=== PATIENT | female | born 1950 | race Caucasian/White ===

== ENCOUNTER 2022-03-04 10:03 | Outpatient (CLI) | payer MEDICARE, OTHER, SELFPAY ==
--- NOTE | 2022-03-04 10:15 | CRLHL7_ITS ---
For Patients: As a result of the Century Cures Act, medical imaging exams and procedure reports are released immediately into your electronic medical record. You may view this report before your referring provider. If you have questions, please contact your health care provider. BILATERAL SCREENING MAMMOGRAM WITH COMPUTER-AIDED DETECTION AND TOMOSYNTHESIS TECHNIQUE: CC and MLO views were obtained. These mammographic images have been obtained using full-field digital technique. These mammographic images were interpreted with the benefit of computer-aided detection. Breast Tomosynthesis was used in this interpretation. COMPARISON FILM: 02/28/21, 02/24/20, 08/03/17. FINDINGS: The breasts are heterogeneously dense, which may obscure small masses IMPRESSION: There is no radiographic evidence for malignancy. ASSESSMENT: BI-RADS Category 1: Negative RECOMMENDATION: Routine screening mammogram in 1 year. A lay language report of this examination will be provided to the patient. Sven Bess M.D. Diagnostic Radiologist [email or web address] DENNIS/Dictated by: Sven Bess MD @ 03/04/2022 12:26:00 PM (Electronically Signed)
== END 2022-03-04 10:04 | disposition home or self-care (01) ==
LOC: MAMMO 10:04
PROVIDERS: PCP Internal Medicine; Visit Provider Internal Medicine
DX: Z12.31 Encounter for screening mammogram for malignant neoplasm of breast (principal); R92.2 Inconclusive mammogram
CPT/HCPCS: 77063; 77067

== ENCOUNTER 2022-06-23 09:43 | Emergency (ER) | payer MEDICARE, OTHER, SELFPAY ==
[2022-06-23 09:47] VITALS: BP 184/98; PULSE 70; RESP 16; TEMP 36.3; O2SAT 97
--- NOTE | 2022-06-23 10:13 | CRLHL7_ITS ---
For Patients: As a result of the Century Cures Act, medical imaging exams and procedure reports are released immediately into your electronic medical record. You may view this report before your referring provider. If you have questions, please contact your health care provider. INDICATION: LEFT FLANK PAIN TECHNIQUE: CT abdomen and pelvis without contrast, stone protocol. COMPARISON: CT abdomen pelvis February 14, 2020 FINDINGS: Kidney/ureters: Postoperative changes of partial left nephrectomy for tumor removal. Evaluation of the renal parenchyma is suboptimal due to lack of IV contrast. No kidney or ureteral stones and no hydronephrosis. No sign of perinephric inflammation. The bladder appears unremarkable. Liver/gallbladder/bile ducts: Hepatic steatosis is noted. The gallbladder surgically absent. No biliary duct dilation. Spleen/pancreas/adrenal glands: The spleen, adrenal glands and pancreas are within normal limits. GI tract: Postoperative changes in the distal colon. No bowel obstruction. Mild fecal retention. Colonic diverticulosis without evidence of acute diverticulitis. Abdominal wall/omentum/peritoneum: No free air or significant free fluid. Postsurgical changes from ventral hernia repair. Lymph nodes: No lymphadenopathy. Pelvis: Probable calcified uterine fibroids are again seen. Lower chest: Linear bibasilar atelectasis and scarring. Bones: Mild multilevel degenerative spondylosis without acute fracture or aggressive osseous lesion. IMPRESSION: 1. No evidence of acute intra-abdominal process on this unenhanced CT. 2. Status post left partial nephrectomy with evaluation for recurrence limited due to lack of IV contrast. No evidence of stone or hydronephrosis. 3. Hepatic steatosis. Please note that all CT scans at this facility use dose modulation, iterative reconstruction, and/or weight-based dosing when appropriate to reduce radiation dose to as low as reasonably achievable. Dictated by Yan Summers MD @ 06/23/2022 12:21:28 PM (Electronically Signed)
--- OUTSIDE RECORDS SUMMARY | 2022-06-23 10:27 | XMS_ITS | Clinical Summary ---
:1950 Author Organization [facility] [place] [address] Care Team Providers Name Role Phone Adele Mishra MD Primary Care Provider Allergies Active Allergy Reactions Severity Noted Date Comments Ciprofloxacin Itching 06/03/2016 Doxycycline Other - Describe In High 01/06/2017 Had it f or an eye Comment Field, infection and after *Unknown - Childhood 10 days it irritated Rxn her esophagus Metronidazole In Nacl Itching 06/03/2016 (Iso-Os) Medications Medication Sig Dispensed Refills Start End Status Date Date levothyroxine Take 75 mcg by mouth 0 Active (SYNTHROID) 75 mcg before breakfast. tabletIndications: Indications: hypothyroidism hypothyroidism atorvastatin (LIPITOR) Take 10 mg by mouth 0 Active 10 mg once daily. tabletIndications: Indications: hypercholesterolemia hypercholesterolemia guar gum (BENEFIBER) Take 1 Tbsp by mouth 0 12/03/19 Active powd once daily. MIX IN 4 OZ 18 BEVERAGE/SOFT FOOD. multivitamin (MVI) Take 1 tablet by mouth 0 12/03/19 Active tablet once daily. 18 lisinopriL (PRINIVIL; 0 04/04/20 Active ZESTRIL) 40 mg tablet 21 polyethylene Drink 3 quarts the day 4000 mL 0 05/10/20 Active glycol-electrolyte before procedure and 1 21 (GOLYTELY) quart 6 hours before [id number] -5.86 procedure gram suspensionIndications: Encounter for screening colonoscopy Active Problems Not on file Social History Tobacco Use Types Packs/Day Years Used Date Never Smoker Smokeless Tobacco: Never Used Tobacco Cessation: Counseling Given: Yes Alcohol Use Standard Drinks/Week Comments Yes 1 (1 standard drink = 0.6 oz pure occasi onally glass of wine weekly alcohol) Alcohol Habits Answer Date Recorded How often do you have a drink Not asked containing alcohol? How many drinks containing alcohol do Not asked you have on a typical day when you are drinking? How often do you have six or more Not asked drinks on one occasion? Comment: occasionally glass of wine weekly 2017 Sex Assigned at Date Recorded Not on file Obstetrics History Last Filed Vital Signs Vital Sign Reading Time Taken Comments Blood Pressure 138/67 04/17/2021 2:08 PM CDT Pulse 64 04/17/2021 2:08 PM CDT Temperature 36.4 ??C (97.6 ??F) 06/03/2016 11:08 AM [employer]LECTR[employer] APPL[employer]ANCE [employer]IC Respiratory Rate 16 12/02/2017 12:53 PM CDT Oxygen Saturation 97% 04/17/2021 2:08 PM CDT Inhaled Oxygen Concentration - - Weight 87.4 kg (192 lb 9.6 oz) 04/17/2021 2:08 PM CDT Height 171.5 cm (5' 7.5) 12/02/2017 12:53 PM CDT Body Mass Index 29.72 12/02/2017 12:53 PM CDT Plan of Treatment Health Maintenance Due Date Last Done Comments Tdap 1961 Depression screening for age 12+ 1962 Hepatitis C screening for age 18-79 1968 Tetanus booster 1970 Lipids for age 45-75 1995 Mammogram for age 45-75 1995 Zoster (shingles) series for age 50+ 2000 (1 of 2) DEXA/DXA scan for age 65+ 2015 Medicare Wellness for age 65+ 2015 Pneumococcal series for age 65+ (1 - 2015 PCV) BMI (ht and wt on same day) for age 0512/02/2018 12/02/2017 18+ COVID-19 vaccine series (4 - Booster 07/11/2021 05/16/2021, 10/12/2020, for Pfizer series) 09/21/2020 Influenza for age 65+ 03/20/2022 Colonoscopy through age 75 06/03/2031 06/03/2021, Results Not on filefrom Last 3 Months Insurance Payer Benefit Plan / Subscriber ID Effective Dates Phone Addre ss Type Group MEDICARE PART B MEDICARE PART B [id number] 2015-Presen ATTN: CLAIMS - HB USE ONLY HB ONLY t [address] [place] [address] MEDICARE PART A MEDICARE PART A [id number] 2015-Presen ATTN: CLAIMS - HB USE ONLY HB ONLY t [address] [place] [address] MEDICARE - PB MEDICARE PB ONLY [id number] 2015-Presen ATTN: CLAIMS USE ONLY t [address] [place] [address] COMMERCIAL COMMERCIAL [id number] 2014-Presen [address] [place] [address] [phone] (Home) [place] [id number] Care Teams Fence Installer Relationship Specialty Start Date End Date Adele Mishra MD PCP - General Internal Medicine 12/01/171999 [facility] [place] [address]
[2022-06-23 10:37] VITALS: BP 186/86; PULSE 63; RESP 16; O2SAT 99
[2022-06-23 10:40] LABS: Appearance Urine Clear (Clear); Bilirubin Urine Negative (Negative); Blood Urine Negative (Negative); Color Urine Yellow (Yellow); Glucose Urine Negative (Negative); Ketones Urine Negative (Negative); Leukocyte Esterase Urine 1+ (Negative); Nitrite Urine Negative (Negative); Protein Urine Negative (Negative); Urobilinogen Urine 0.2 (0.2-1.0); pH Urine 6.5 (5.0-8.5)
[2022-06-23 10:43] LABS: Basophils Percent Auto 0.4 % (0.0-3.0); Eosinophils Percent Auto 0.5 % (0.0-7.0); Hematocrit 44.4 % (33.0-51.0); Hemoglobin* 15.6 gm/dL (12.0-16.0); Immature Granulocytes Pct Auto 0.2 %; Mean Corpuscular HGB Conc 35 gm/dL (32-36); Mean Corpuscular Hemoglobin 32 pg (26-34); Mean Corpuscular Volume 90 fL (80-100); Neutrophils Percent Auto 76.9 % (42.0-72.0); Platelet Count* 245 K/uL (140-440); RDW Coefficient of Variation % 12.3 % (11.5-15.5); Red Blood Count 4.96 m/uL (4.00-5.20)
[2022-06-23 10:56] LABS: RBC Urine 0-2 (0-2)
[2022-06-23 10:57] LABS: Slide Review Reflex No
[2022-06-23 10:58] LABS: Chloride* 106 mmol/L (96-114); Sodium* 139 mmol/L (135-149)
[2022-06-23 11:00] VITALS: BP 181/106; PULSE 63; RESP 16; O2SAT 97
[2022-06-23 11:00] LABS: Albumin* 4.7 g/dL (3.3-5.0)
[2022-06-23 11:01] LABS: Creatinine* 0.7 mg/dL (0.5-1.5); Estimated Glomerular Filt Rate 92 ml/min
--- NOTE | 2022-06-23 11:01 | ED_ITS ---
HPI - General Adult General Chief complaint: Back Injury/Pain Stated complaint: Mid-upper back pain Time Seen by Provider: 06/23/22 10:04 Source: patient Mode of arrival: ambulatory Limitations: no limitations History of Present Illness HPI narrative: Patient is a 72-year-old female coming in today complaining of back pain that has been going on for 5 weeks. Pain is located over the left flank and radiates up the left back to about the shoulder blade. She states that it comes and goes. Is not present every day. Nothing seems to make it better or worse. It is not associated with fevers, chills, nausea or vomiting. Is not associated with eating or physical activity. Patient is concerned because she does have a history of renal cancer and this is how her symptoms presented when she was diagnosed several years ago. She denies any difficulty with urination including dysuria, increased urinary frequency or urgency. She denies any blood in her stools. She denies any abdominal pain in the front of the abdomen. She denies any diarrhea or constipation, states that she has a daily bowel movement and is normal. She states that she has lost 7 lb since the summer by changing her diet. She denies any night sweats. She denies any weakness. Related Data Home Medications Medication Instructions Recorded Confirmed Lactobacillus 1 cap PO DAILY 01/21/22 01/23/22 acidophilus-Bifidobac.animalis 31 billion cell capsule multivitamin 1 tab PO QAM 01/21/22 01/23/22 wheat dextrin 3 gram/3.8 gram oral 4 PO DAILY 01/21/22 01/23/22 powder Previous Rx's Medication Instructions Recorded atorvastatin 10 mg tablet 10 mg PO QDAY #90 tabs 01/23/22 levothyroxine 75 mcg tablet 75 mcg PO DAILY #90 tabs 01/23/22 lisinopril 40 mg tablet 40 mg PO DAILY #90 tabs 01/23/22 Allergies Allergy/AdvReac Type Severity Reaction Status Date / Time doxycycline Allergy Intermediate esophagitis Verified 01/23/22 15:08 ciprofloxacin Allergy Unknown Verified 01/23/22 15:08 metronidazole Allergy Unknown Verified 01/23/22 15:08 Review of Systems Status of ROS: Reports: 10 or more systems reviewed and unremarkable except as noted in History and below [facility] Medical History History of esophagitis (11/2016) Surgical History History of benign breast biopsy (2012) History of bunionectomy of left great toe (2006) History of cholecystectomy (1996) History of incisional hernia repair (07/01/18) 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) History of partial surgical removal of colon (09/17/16) History of tonsillectomy Social History Smoking Status: Never smoker How often do you have a drink containing alcohol: monthly or less AUDIT-C Alcohol total score: 1 Non-prescribed substance use: denies use Little interest or pleasure in doing things: not at all Feeling down, depressed, or hopeless: not at all service: No Exam Narrative: Exam Narrative: Well-nourished well-developed patient in no acute distress. Alert and oriented. Answers questions appropriately. Mood and affect are appropriate. Thoughts are goal oriented and rational. No tangential or magical thinking noted. Patient speaks in full sentences without needing to catch their breath. HEENT: Normocephalic atraumatic. Pupils are equally round reactive to light. Extraocular muscles are intact. Conjunctivae are moist without any icterus noted. Moist mucous membranes. Posterior pharynx is normal. Neck is soft without any lymphadenopathy or thyromegaly. Cardiovascular: Heart is regular rate and rhythm S1 and S2 are present without any murmurs. Lungs: Clear to auscultation bilaterally no wheezes rhonchi or rales are appreciated. Patient takes deep breaths without any discomfort. Abdomen: Soft and nontender nondistended with normal bowel sounds. No guarding or rebound. No masses or organomegaly appreciated. Extremities: Bilateral lower extremities are without edema. Normal DP and PT pulses. Skin: Well perfused without any obvious rashes. Back: Has normal appearance. She has no tenderness to palpation over the thoracic or lumbar spine. She has no CVA tenderness. She has no tenderness at the paraspinal musculature. Back exam is normal. Const: Vital Signs, click to edit/add: Vital Signs - 24 hr 06/23/22 09:47 06/23/22 10:37 06/23/22 11:00 Temperature 97.4 F L Pulse Rate [Pulse Oximeter] 70 63 63 Respiratory Rate 16 16 16 Blood Pressure [Ri ght Upper Arm] 184/98 H 186/86 H 181/106 H Pulse Oximetry 97 99 97 Oxygen Delivery Me thod Room Air Room Air Room Air 06/23/22 11:30 Temperature Pulse Rate [Pulse Oximeter] 63 Respiratory Rate 16 Blood Pressure [Ri ght Upper Arm] 160/68 H Pulse Oximetry 100 Oxygen Delivery Me thod Room Air Course Course Hospital Course: Labs were drawn and were unremarkable. Abdominal CT was done and did not show any acute lesions of the kidneys, unfortunately this did get done without contrast as we were also evaluating for a kidney stone, so evaluation was suboptimal. I did offer the patient to proceed with a renal ultrasound which the patient declined. UA did show 1+ leukocyte esterase and 5-10 wbc's, however without any increased urinary frequency, urgency or dysuria and the location of her pain traveling up all the way to the shoulder blade, I do not think that her symptoms are caused by UTI. Vital Signs Vital signs: Initial Vital Signs Temperature 97.4 F L 06/23/22 09:47 Temperature Source Temporal Artery Scan 06/23/22 09:47 Pulse Rate 70 06/23/22 09:47 Pulse Rhythm 06/23/22 09:47 Respiratory Rate 16 06/23/22 09:47 Blood Pressure 184/98 H 06/23/22 09:47 Blood Pressure Mean 126 06/23/22 09:47 Blood Pressure Position Sitting 06/23/22 09:47 Pulse Oximetry 97 06/23/22 09:47 Oxygen Delivery Method 06/23/22 09:47 Vital Signs Temperature 97.4 F L 06/23/22 09:47 Pulse Rate 70 06/23/22 09:47 Respiratory Rate 16 06/23/22 09:47 Blood Pressure 184/98 H 06/23/22 09:47 Pulse Oximetry 97 06/23/22 09:47 Oxygen Delivery Method 06/23/22 09:47 Temperature 97.4 F L 06/23/22 09:47 Pulse Rate 63 06/23/22 11:30 Respiratory Rate 16 06/23/22 11:30 Blood Pressure 160/68 H 06/23/22 11:30 Pulse Oximetry 100 06/23/22 11:30 Oxygen Delivery Method 06/23/22 11:30 Medical Decision Making Lab Data Lab results reviewed: Yes I reviewed the patient's lab results Labs: Lab Results 06/23/22 06/23/22 06/23/22 Range/Units 10:12 10:25 10:25 WBC 11.10 H (4.50-11.00) K/uL RBC 4.96 (4.00-5.20) m/uL Hgb 15.6 (12.0-16.0) gm/dL Hct 44.4 (33.0-51.0) % MCV 90 (80-100) fL MCH 32 (26-34) pg MCHC 35 (32-36) gm/dL RDW Coeff of Dejuan 12.3 (11.5-15.5) % Plt Count 245 (140-440) K/uL Neut % (Auto) 76.9 H (42.0-72.0) % Lymph % (Auto) 17.0 L (20-44) % [place] % (Auto) 5.0 (0.0-11.0) % Eos % (Auto) 0.5 (0.0-7.0) % Baso % (Auto) 0.4 (0.0-3.0) % Neut # (Auto) 8.50 H (1.7-7.0) K/uL Lymph # (Auto) 1.90 (0.90-2.90) K/uL [place] # (Auto) 0.60 (0.00-0.90) K/UL Eos # (Auto) 0.10 (0.00-0.50) K/uL Baso # (Auto) 0.00 (0.00-0.30) K/uL Abs Immat Gran (auto) 0.00 (0.00-0.30) K/uL Imm/Tot Granulo (auto) 0.2 % ESR (2-20) mm/hr D-Dimer Quant (PE/DVT) 0.39 (0.00-0.50) ug/ml Sodium (135-149) mmol/L Potassium (3.6-5.1) mmol/L Chloride (96-114) mmol/L Carbon Dioxide (20-32) mmol/L BUN (7-30) mg/dL Creatinine (0.5-1.5) mg/dL Estimated GFR ml/min Glucose (60-115) mg/dL Calcium (8.4-10.6) mg/dL Total Bilirubin (0.1-1.5) mg/dL Direct Bilirubin (0.0-0.5) mg/dL AST (12-35) U/L ALT (4-35) U/L Alkaline Phosphatase (40-150) U/L C-Reactive Protein (0.5-1.0) mg/dL Total Protein (6.0-8.3) g/dL Albumin (3.3-5.0) g/dL Lipase (23-300) U/L Urine Color Yellow (Yellow) Urine Appearance Clear (Clear) Urine pH 6.5 (5.0-8.5) Ur Specific [place] 1.010 (1.000-1.030) Urine Protein Negative (Negative) Urine Glucose (UA) Negative (Negative) Urine Ketones Negative (Negative) Urine Blood Negative (Negative) Urine Nitrite Negative (Negative) Urine Bilirubin Negative (Negative) Urine Urobilinogen 0.2 (0.2-1.0) Ur Leukocyte Esterase 1+ A (Negative) Urine RBC 0-2 (0-2) Urine WBC 5-10 A (0-5) Ur Squamous Epith Cells None (None-Few) Urine Bacteria None (None) 06/23/22 06/23/22 06/23/22 Range/Units 10:25 10:25 10:25 WBC (4.50-11.00) K/uL RBC (4.00-5.20) m/uL Hgb (12.0-16.0) gm/dL Hct (33.0-51.0) % MCV (80-100) fL MCH (26-34) pg MCHC (32-36) gm/dL RDW Coeff of Dejuan (11.5-15.5) % Plt Count (140-440) K/uL Neut % (Auto) (42.0-72.0) % Lymph % (Auto) (20-44) % [place] % (Auto) (0.0-11.0) % Eos % (Auto) (0.0-7.0) % Baso % (Auto) (0.0-3.0) % Neut # (Auto) (1.7-7.0) K/uL Lymph # (Auto) (0.90-2.90) K/uL [place] # (Auto) (0.00-0.90) K/UL Eos # (Auto) (0.00-0.50) K/uL Baso # (Auto) (0.00-0.30) K/uL Abs Immat Gran (auto) (0.00-0.30) K/uL Imm/Tot Granulo (auto) % ESR 16 (2-20) mm/hr D-Dimer Quant (PE/DVT) (0.00-0.50) ug/ml Sodium 139 (135-149) mmol/L Potassium 4.0 (3.6-5.1) mmol/L Chloride 106 (96-114) mmol/L Carbon Dioxide 24 (20-32) mmol/L BUN 12 (7-30) mg/dL Creatinine 0.7 (0.5-1.5) mg/dL Estimated GFR 92 ml/min Glucose 203 H (60-115) mg/dL Calcium 9.9 (8.4-10.6) mg/dL Total Bilirubin 0.8 (0.1-1.5) mg/dL Direct Bilirubin 0.1 (0.0-0.5) mg/dL AST 35 (12-35) U/L ALT 26 (4-35) U/L Alkaline Phosphatase 98 (40-150) U/L C-Reactive Protein < 0.5 L (0.5-1.0) mg/dL Total Protein 7.6 (6.0-8.3) g/dL Albumin 4.7 (3.3-5.0) g/dL Lipase 91 (23-300) U/L Urine Color (Yellow) Urine Appearance (Clear) Urine pH (5.0-8.5) Ur Specific [place] (1.000-1.030) Urine Protein (Negative) Urine Glucose (UA) (Negative) Urine Ketones (Negative) Urine Blood (Negative) Urine Nitrite (Negative) Urine Bilirubin (Negative) Urine Urobilinogen (0.2-1.0) Ur Leukocyte Esterase (Negative) Urine RBC (0-2) Urine WBC (0-5) Ur Squamous Epith Cells (None-Few) Urine Bacteria (None) Imaging Data CT scan - abdomen: Attestation: I have reviewed the pertinent imaging results. Radiologist's impression: CT abdomen and pelvis without contrast, stone protocol. COMPARISON: CT abdomen pelvis February 14, 2020 FINDINGS: Kidney/ureters: Postoperative changes of partial left nephrectomy for tumor removal. Evaluation of the renal parenchyma is suboptimal due to lack of IV c ontrast. No kidney or ureteral stones and no hydronephrosis. No sign of perinephric inflammation. The bladder appears unremarkable. Liver/gallbladder/bile ducts: Hepatic steatosis is noted. The gallbladder surgically absent. No biliary duct dilation. Spleen/pancreas/adrenal glands: The spleen, adrenal glands and pancreas are within normal limits. GI tract: Postoperative changes in the distal colon. No bowel obstruction. Mild fecal retention. Colonic diverticulosis without evidence of acute diverticulitis. Abdominal wall/omentum/peritoneum: No free air or significant free fluid. Postsurgical changes from ventral hernia repair. Lymph nodes: No lymphadenopathy. Pelvis: Probable calcified uterine fibroids are again seen. Lower chest: Linear bibasilar atelectasis and scarring. Bones: Mild multilevel degenerative spondylosis without acute fracture or aggressive osseous lesion. IMPRESSION: 1. No evidence of acute intra-abdominal process on this unenhanced CT. 2. Status post left partial nephrectomy with evaluation for recurrence limited due to lack of IV contrast. No evidence of stone or hydronephrosis. 3. Hepatic steatosis. Discharge Plan Discharge Clinical Impression: Back pain Patient Disposition: Home, Self-Care Condition: Stable Additional Instructions: Recommend you follow-up with your primary care provider when possible. You should discuss physical therapy for back pain, and the potential of doing an ultrasound to have a better look at the left kidney. Prescriptions: No Action L. acidophilus/Bifid. animalis 31 billion cell capsule 1 cap PO DAILY multivitamin Tablet 1 tab PO QAM wheat dextrin 3 gram/3.8 gram powder 4 PO DAILY atorvastatin 10 mg tablet 10 mg PO QDAY Qty: 90 3RF lisinopril 40 mg tablet 40 mg PO DAILY Qty: 90 3RF levothyroxine 75 mcg tablet 75 mcg PO DAILY Qty: 90 3RF Follow Up/Referrals: Adele Mishra MD [Primary Care Provider] - Stand Alone Forms: [employer] Info Instructions
[2022-06-23 11:02] LABS: Aspartate Amino Transferase* 35 U/L (12-35); Bilirubin Direct* 0.1 mg/dL (0.0-0.5); Bilirubin Total* 0.8 mg/dL (0.1-1.5); Blood Urea Nitrogen* 12 mg/dL (7-30); Calcium* 9.9 mg/dL (8.4-10.6); Carbon Dioxide* 24 mmol/L (20-32); Glucose* 203 mg/dL (60-115); Total Protein* 7.6 g/dL (6.0-8.3)
[2022-06-23 11:03] LABS: Alanine Aminotransferase* 26 U/L (4-35); Alkaline Phosphatase* 98 U/L (40-150); Lipase* 91 U/L (23-300)
[2022-06-23 11:06] LABS: C Reactive Protein* < 0.5 mg/dL (0.5-1.0)
[2022-06-23 11:09] LABS: D Dimer Quantitative* 0.39 ug/ml (0.00-0.50)
[2022-06-23 11:26] LABS: Erythrocyte SedimentationRate* 16 mm/hr (2-20)
[2022-06-23 11:30] VITALS: BP 160/68; PULSE 63; RESP 16; O2SAT 100
--- NOTE | 2022-06-23 12:37 | ED.NURSE ---
Patient was discharged. PIV taken out and catheter intact. BP came down nicely. Will follow up with PCP.
== END 2022-06-23 12:38 | disposition home or self-care (01) ==
PROVIDERS: Emergency Provider Family Medicine; PCP Internal Medicine
DX: M54.9 Dorsalgia, unspecified (principal)
CPT/HCPCS: 36415; 74176; 80048; 80076; 81001; 83690; 85025; 85379; 85651; 86140; 87086; 99284

== ENCOUNTER 2022-12-25 11:49 | Outpatient (CLI) | payer MEDICARE, OTHER, SELFPAY | END 2022-12-25 11:50 | disposition home or self-care (01) | LOC: RAD 11:50 | PROVIDERS: PCP Internal Medicine; Visit Provider Internal Medicine | DX: I31.39 Other pericardial effusion (noninflammatory) (principal); I51.7 Cardiomegaly; I35.1 Nonrheumatic aortic (valve) insufficiency; I34.0 Nonrheumatic mitral (valve) insufficiency | CPT/HCPCS: 93306 ==

== ENCOUNTER 2023-02-09 07:34 | Outpatient (CLI) | payer MEDICARE, OTHER, SELFPAY | END 2023-02-09 07:35 | disposition home or self-care (01) | LOC: NFLDREF 11:57 | PROVIDERS: PCP Internal Medicine; Referring Provider Internal Medicine; Visit Provider Internal Medicine | DX: E78.5 Hyperlipidemia, unspecified (principal); E03.9 Hypothyroidism, unspecified; R73.03 Prediabetes; I10 Essential (primary) hypertension | CPT/HCPCS: 80048; 80061; 84443 ==

== ENCOUNTER 2023-04-15 06:11 | Day surgery (SDC) | payer MEDICARE, OTHER, SELFPAY ==
[2023-04-15] MEDS: TETRACAINE 0.5% OPHTH 1 DROP EYE-RIGHT ×2 (06:38→06:45)
--- NOTE | 2023-04-15 06:40 | SUR.PREOP ---
The eye drops brought by the patient (Ketorolac and Prednisolone) are examined and I have determined they are labeled by the patient's pharmacy for this patient as prescribed by the surgeon. The bottles are intact, recently obtained and appear to be correct.
[2023-04-15] MEDS: KETOROLAC OPHTH 0.5% 1 DROP EYE-RIGHT ×3 (06:42→06:55)
[2023-04-15] MEDS: SODIUM CHLORIDE 0.9 % (FLUSH) 10 ML SYRINGE IVF (06:58)
[2023-04-15 07:00] VITALS: BP 140/79; PULSE 50; RESP 16; TEMP 36.6; O2SAT 96; BMI 31.8
[2023-04-15] MEDS: TETRACAINE 0.5% OPHTH 2 DROP EYE-RIGHT (07:02)
[2023-04-15] MEDS: BALANCED SALT IRRIG SOLN 15 ML EYE-RIGHT (07:18)
--- NOTE | 2023-04-15 07:22 | W.ANESCHARGE ---
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
[2023-04-15 08:05] VITALS: BP 147/76; PULSE 49; RESP 16; TEMP 36.9; O2SAT 96
--- NOTE | 2023-04-15 08:52 | W.ANESCHARGE ---
Anesthesia Charges Start Date/Time Anesthesia Start Date: 04/15/23 Anesthesia Start Time: 07:08 Stop Date/Time Anesthesia Stop Date: 04/15/23 Anesthesia Stop Time: 07:42 Summary Extremes of Age - Over 70 or under 1: MDA
--- NOTE | 2023-04-15 10:00 | P.OPTPRC_ITS ---
Procedure Note Date of procedure: 04/15/23 Will [facility] bill your pro fee for this procedure?: Yes Procedure Description: SURGEON: Khushboo Song MD PREOPERATIVE DIAGNOSIS: Nuclear sclerotic cataract, right eye. POSTOPERATIVE DIAGNOSIS: Nuclear sclerotic cataract, right eye. NAME OF OPERATION: Phacoemulsification of cataract with posterior chamber intraocular lens implantation in the right eye. ANESTHESIA: Topical. ESTIMATED BLOOD LOSS: Less than 2 cc. COMPLICATIONS: None. PATHOLOGY SPECIMEN: None. INDICATIONS: See consult note for details. The risks, benefits and alternatives of the procedure were explained to the patient, who elected to proceed and signed informed consent to do so. PROCEDURE: The patient was brought to the pre-holding area where the right eye was identified as the operative eye. I placed my initials above this eye. The patient received eye drops consisting of 0.5% tetracaine, 1% tropicamide, 10% phenylephrine, and 0.5% ketorolac. The patient was then brought to the operating room where the right eye was again identified as the operative eye. The eye was prepped with Betadine and draped in the usual sterile ophthalmic fashion. A #15 super-sharp blade was used to create a paracentesis site. 1% non-preserved intracameral lidocaine was injected into the anterior chamber. Endocoat was injected into the anterior chamber. A 2.4 mm keratome was used to create a three-plane self-sealing incision 1 mm anterior to the temporal limbus. A cystotome was used to create an anterior capsular leaflet. The Utrata forceps were used to extend this to form a continuous curvilinear capsulorrhexis. Hydrodissection was performed. The cataract was removed with phacoemulsification using the [id number] technique. The irrigation and aspiration tip was used to remove the remaining cortex. Healon was injected into the capsular bag. An EFFIE [id number] intraocular lens of 22.0 diopters was injected into the capsular bag. The irrigation and aspiration tip was used to remove the remaining viscoelastic. Balanced salt solution on a cannula was used to hydrate the wound, and the wound was found to be watertight. The pupil was noted to be round. DISPOSITION: The patient was taken to the recovery room and discharged to home in stable condition. The patient was instructed to call me or go to the emergency department with any sudden change, including dramatic loss of vision, severe pain in the eye or eyebrow region, nausea, or vomiting. The patient will follow up in the clinic tomorrow morning.
== END 2023-04-15 08:08 | disposition home or self-care (01) ==
PROVIDERS: PCP Internal Medicine; Visit Provider Ophthalmology
PROC: (CPT 66984; principal; 2023-04-15 06:15)
DX: H25.11 Age-related nuclear cataract, right eye (principal)
CPT/HCPCS: 66984; 00142; 99100; A9270; J2250; J3010; V2632

== ENCOUNTER 2023-04-29 06:12 | Day surgery (SDC) | payer MEDICARE, OTHER, SELFPAY ==
[2023-04-29] MEDS: KETOROLAC OPHTH 0.5% 1 DROP EYE-LEFT ×3 (06:23→06:52)
[2023-04-29] MEDS: TETRACAINE 0.5% OPHTH 1 DROP EYE-LEFT ×2 (06:23→06:35)
[2023-04-29 06:26] VITALS: BMI 31.8
[2023-04-29 06:30] VITALS: BP 161/79; PULSE 47; RESP 16; TEMP 36.3; O2SAT 96
[2023-04-29] MEDS: SODIUM CHLORIDE 0.9 % (FLUSH) 10 ML SYRINGE IVF (06:52)
[2023-04-29] MEDS: TETRACAINE 0.5% OPHTH 2 DROP EYE-LEFT ×2 (07:17→07:48)
[2023-04-29] MEDS: BALANCED SALT IRRIG SOLN 15 ML EYE-LEFT (07:19)
--- NOTE | 2023-04-29 07:28 | W.ANESCHARGE ---
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
[2023-04-29 08:02] VITALS: BP 173/83; PULSE 51; RESP 16; TEMP 36.3; O2SAT 93
--- NOTE | 2023-04-29 08:02 | W.ANESCHARGE ---
Anesthesia Charges Start Date/Time Anesthesia Start Date: 04/29/23 Anesthesia Start Time: 07:15 Stop Date/Time Anesthesia Stop Date: 04/29/23 Anesthesia Stop Time: 08:05 Summary Extremes of Age - Over 70 or under 1: MDA
[2023-04-29] MEDS: timoloL maleate 0.5 % 1 DROP EYE-LEFT (08:20)
[2023-04-29] MEDS: ONDANSETRON 2 MG/ML inj 4 MG IVP (08:45)
== END 2023-04-29 08:55 | disposition home or self-care (01) ==
PROVIDERS: PCP Internal Medicine; Visit Provider Ophthalmology
PROC: (CPT 66850; principal; 2023-04-29 06:15)
DX: H25.12 Age-related nuclear cataract, left eye (principal); H59.88 Other intraoperative complications of eye and adnexa, not elsewhere classified
CPT/HCPCS: 66850; 00142; 99100; A9270; J2250; J2405; J3010

== ENCOUNTER 2023-05-01 06:15 | Day surgery (SDC) | payer MEDICARE, OTHER, SELFPAY ==
[2023-05-01] MEDS: KETOROLAC OPHTH 0.5% 1 DROP EYE-LEFT ×3 (06:30→06:40)
[2023-05-01] MEDS: TETRACAINE 0.5% OPHTH 1 DROP EYE-LEFT ×2 (06:30→06:35)
[2023-05-01 06:41] VITALS: BP 179/79; PULSE 51; RESP 16; TEMP 36.6; O2SAT 94; BMI 31.3
[2023-05-01] MEDS: TETRACAINE 0.5% OPHTH 2 DROP EYE-LEFT (07:30)
[2023-05-01] MEDS: BALANCED SALT IRRIG SOLN 15 ML EYE-LEFT (07:34)
--- NOTE | 2023-05-01 07:45 | P.ANES_ITS ---
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
[2023-05-01 07:55] VITALS: BP 162/85; PULSE 51; RESP 16; O2SAT 94
[2023-05-01] MEDS: ACETAMINOPHEN 500 MG TABLET 1000 MG PO (08:13)
--- NOTE | 2023-05-01 08:16 | W.PM.OPTPROC ---
Procedure Note Date of procedure: 04/29/23 Will [facility] bill your pro fee for this procedure?: Yes Procedure Description: SURGEON: Khushboo Song MD PREOPERATIVE DIAGNOSIS: Nuclear sclerotic cataract, left eye. POSTOPERATIVE DIAGNOSIS: Nuclear sclerotic cataract, left eye. NAME OF OPERATION: Phacoemulsification of cataract WITHOUT IMPLANT ANESTHESIA: Topical. ESTIMATED BLOOD LOSS: Less than 2 cc. COMPLICATIONS: Increase posterior eye pressure with inability to place intraocular implant PATHOLOGY SPECIMEN: None. INDICATIONS: See consult note for details. The risks, benefits and alternatives of the procedure were explained to the patient, who elected to proceed and signed informed consent to do so. PROCEDURE: The patient was brought to the pre-holding area where the left eye was identified as the operative eye. I placed my initials above this eye. The patient received eye drops consisting of 0.5% tetracaine, 1% tropicamide, 10% phenylephrine, and 0.5% ketorolac. The patient was then brought to the operating room where the left eye was again identified as the operative eye. The eye was prepped with Betadine and draped in the usual sterile ophthalmic fashion. A #15 super-sharp blade was used to create a paracentesis site. 1% non-preserved intracameral lidocaine was injected into the anterior chamber. Endocoat was injected into the anterior chamber. A 2.4 mm keratome was used to create a three-plane self-sealing incision 1 mm anterior to the temporal limbus. A cystotome was used to create an anterior capsular leaflet. The Utrata forceps were used to extend this to form a continuous curvilinear capsulorrhexis. Hydrodissection was performed. The cataract was removed with phacoemulsification using the [id number] technique. The irrigation and aspiration tip was used to remove the remaining cortex. Healon was injected into the capsular bag. However it would not stay in the eye due to increase posterior eye pressure. The patient did note some temporary pain. The irrigation and aspiration tip was used to remove the remaining viscoelastic. The eye felt soft. The patient was given 12.5 grams IV mannitol. Healon was again injected into the eye. A small amount remained in the eye. Partial insertion of the lens was attempted. However, there was too much posterior pressure with inadequate space in the capsular bag, therefore it was discontinued and the patient was left aphakic. A 10-0 suture was placed in the incision, and the wound was found to be watertight. The pupil was noted to be round. DISPOSITION: The patient was taken to the recovery room and discharged to home in stable condition. The patient was informed of the above. She was instructed to take timolol in the left eye 4 times today. The patient was instructed to call me or go to the emergency department with any sudden change, including dramatic loss of vision, severe pain in the eye or eyebrow region, nausea, or vomiting. The patient will follow up in the clinic tomorrow morning.
--- NOTE | 2023-05-01 08:26 | W.PM.OPTPROC ---
Procedure Note Date of procedure: 05/01/23 Will [facility] bill your pro fee for this procedure?: Yes Procedure Description: SURGEON: Khushboo Song MD PREOPERATIVE DIAGNOSIS: Aphakia, left eye. POSTOPERATIVE DIAGNOSIS: Aphakia, left eye. NAME OF OPERATION: Secondary implantation of posterior chamber intraocular lens implant in the left eye. ANESTHESIA: Topical. ESTIMATED BLOOD LOSS: Less than 2 cc. COMPLICATIONS: None. PATHOLOGY SPECIMEN: None. INDICATIONS: See consult note for details. The risks, benefits and alternatives of the procedure were explained to the patient, who elected to proceed and signed informed consent to do so. PROCEDURE: The patient was brought to the pre-holding area where the left eye was identified as the operative eye. I placed my initials above this eye. The patient received eye drops consisting of 0.5% tetracaine, 1% tropicamide, 10% phenylephrine, and 0.5% ketorolac. The patient was then brought to the operating room where the left eye was again identified as the operative eye. The eye was prepped with Betadine and draped in the usual sterile ophthalmic fashion. A #15 super-sharp blade was used to create a paracentesis site. 1% non-preserved intracameral lidocaine was injected into the anterior chamber. Healon was injected into the capsular bag through the paracentesis site. The 10-0 suture was removed. Healon 5 was injected into the capsular bag to create more space between the anterior capsular edge and the posterior capsule. An EFFIE ZCB00 intraocular lens of 21.5 diopters was injected into the capsular bag. The irrigation and aspiration tip was used to remove the remaining viscoelastic. Balanced salt solution on a cannula was used to hydrate the wound, and the wound was found to be watertight. The pupil was noted to be round. DISPOSITION: The patient was taken to the recovery room and discharged to home in stable condition. The patient was instructed to call me or go to the emergency department with any sudden change, including dramatic loss of vision, severe pain in the eye or eyebrow region, nausea, or vomiting. The patient will follow up in the clinic tomorrow morning.
--- NOTE | 2023-05-01 08:57 | W.ANESCHARGE ---
Anesthesia Charges Start Date/Time Anesthesia Start Date: 05/01/23 Anesthesia Start Time: 07:26 Stop Date/Time Anesthesia Stop Date: 05/01/23 Anesthesia Stop Time: 07:58 Summary Extremes of Age - Over 70 or under 1: MDA
== END 2023-05-01 08:30 | disposition home or self-care (01) ==
PROVIDERS: PCP Internal Medicine; Visit Provider Ophthalmology
PROC: (CPT 66985; principal; 2023-05-01 07:30)
DX: H59.89 Other postprocedural complications and disorders of eye and adnexa, not elsewhere classified (principal)
CPT/HCPCS: 66985; 00142; 99100; A9270; J2150; J2250; J3010; V2632

== ENCOUNTER 2023-05-28 10:04 | Outpatient (CLI) | payer MEDICARE, OTHER, SELFPAY ==
--- NOTE | 2023-05-28 10:15 | CRLHL7_ITS ---
For Patients: As a result of the Century Cures Act, medical imaging exams and procedure reports are released immediately into your electronic medical record. You may view this report before your referring provider. If you have questions, please contact your health care provider. BILATERAL SCREENING MAMMOGRAM WITH COMPUTER-AIDED DETECTION AND TOMOSYNTHESIS TECHNIQUE: CC and MLO views were obtained. These mammographic images have been obtained using full-field digital technique. These mammographic images were interpreted with the benefit of computer-aided detection. Breast Tomosynthesis was used in this interpretation. COMPARISON FILM: 03/04/22, 02/28/21, 02/24/20. FINDINGS: The breasts are heterogeneously dense, which may obscure small masses IMPRESSION: There is no radiographic evidence for malignancy. ASSESSMENT: BI-RADS Category 2: Benign RECOMMENDATION: Routine screening mammogram in 1 year. A lay language report of this examination will be provided to the patient. Sven Bess M.D. Diagnostic Radiologist [email or web address] DENNIS/Dictated by: Sven Bess MD @ 05/28/2023 1:03:00 PM (Electronically Signed)
== END 2023-05-28 10:05 | disposition home or self-care (01) ==
LOC: MAMMO 10:05
PROVIDERS: PCP Internal Medicine; Visit Provider Internal Medicine
DX: Z12.31 Encounter for screening mammogram for malignant neoplasm of breast (principal); R92.2 Inconclusive mammogram
CPT/HCPCS: 77063; 77067

== ENCOUNTER 2023-06-17 12:06 | Outpatient (CLI) | payer MEDICARE, OTHER, SELFPAY ==
[2023-06-17] MEDS: TETRACAINE 0.5% OPHTH 1 DROP EYE-LEFT ×3 (12:25→13:04)
[2023-06-17] MEDS: BRIMONIDINE TARTRATE 0.2% OPHTH 1 DROP EYE-LEFT ×2 (12:25→13:11)
[2023-06-17 12:32] VITALS: BP 178/81; PULSE 53; RESP 16; O2SAT 97
--- NOTE | 2023-06-17 13:21 | P.OPTPRC_ITS ---
Procedure Note Date of procedure: 06/17/23 Will [facility] bill your pro fee for this procedure?: Yes Procedure Description: SURGEON: Khushboo Song MD PREOPERATIVE DIAGNOSIS: Posterior capsular opacity, left eye POSTOPERATIVE DIAGNOSIS: Posterior capsular opacity, left eye PROCEDURE: YAG laser capsulotomy, left eye ANESTHESIA: Topical. ESTIMATED BLOOD LOSS: None PATHOLOGY SPECIMEN: None COMPLICATIONS: None INDICATIONS: See consult note for details. The risks, benefits and alternatives of the procedure were explained to the patient, who elected to proceed and signed informed consent to do so. PROCEDURE: The patient was brought to the pre-holding area where the left eye was identified as the operative eye. I placed my initials above this eye. The patient received 2 sets of 1 drop of 0.5% tetracaine and 1 drop of 1% tropicamide. They also received 1 drop of 0.2% brimonidine. They received 1 drop of 0.5% tetracaine immediately prior to bringing them back for the procedure. The patient was then brought to the procedure room where the left eye was again identified as the operative eye. A YAG Deric capsulotomy lens was placed on the eye. The laser was administered using a total number of field 20 shots with an energy of 2.4 mJ per shot for a total energy of 48 mJ. The patient tolerated the procedure well. DISPOSITION: The patient was taken back to the pre-holding area and given 1 drop of 0.2% brimonidine in the left eye. They were discharged to home in stable condition. The patient was instructed to call me or go to the emergency department with any sudden change, including dramatic loss of vision, severe pain in the eye or eyebrow region, nausea, or vomiting. The patient was instructed to use the 0.2% brimonidine 1 drop 2 times a day in the left eye for 1 week. The patient will follow up in the clinic in 1-2 weeks twenty next
== END 2023-06-17 13:12 | disposition home or self-care (01) ==
LOC: EYE PRC 12:07
PROVIDERS: PCP Internal Medicine; Visit Provider Ophthalmology
DX: H26.9 Unspecified cataract (principal)
CPT/HCPCS: 66821; A9270

== ENCOUNTER 2023-07-23 14:00 | Outpatient (RCR) | payer MEDICARE, OTHER, SELFPAY ==
--- NOTE | 2023-05-11 17:48 | PT.OPEX ---
PT [place] Outpatient Eval PT [facility] Outpatient Eval Start: 05/06/23 14:31 Freq: Status: Active Protocol: Document 05/11/23 07:15 MLS (Rec: 05/11/23 17:46 MLS [id number]) E-signed By Gricel Sloan DPT Physical Therapy Outpatient Evaluation Insurance Information Recert Due Date 08/08/23 Insurance Name Medicare B,Other; See Comments Insurance Information/Comments [employer] [facility] Diagnosis M25.561 Pain in right knee Treating Diagnosis M25.561 Pain in right knee Referring MD Stefan Cortés PA-C Subjective Subjective Patient is a 73 year old female who presents to physical therapy with reports of right knee pain. She states that on April 14, it started after doing some yoga in her home. The pain started on the back side of her right knee and it felt tight. She reports that about 4 days later, she had trouble walking secondary to the pain . She reports that the pain has moved to the front and inside of her knee. She states that the beginning of April, she called and got in with her physician and they did xrays which were negative. She states that the pain has been really bad ever since. She states that when she gets up in morning and starts walking, it hurts, on medial side. She reports that it hurst more going downstairs, but going upstairs is okay. She has no reports of numbness or tingling. She states that it feels like burning pain. She reports that she has not done yoga or walking since it started. She normally walks about 1.5 miles/day and does yoga 1xper week on zoom. Aggravating factors include: walking, turning, twisting, yoga. Alleviating factors include: sitting, resting. Significant past medical history includes stage 1 kidney cancer mar 2015 and arthritis. Patient would like to get rid of her pain and be able to walk through physical therapy sessions. Pain Comments Today: 0/10 on a 0-10 pain scale with 10 = extreme pain At its worst: 8/10 At its best: 0/10 Current Work Status Retired Occupation [employer] Preferred Name Jessica Objective Other/Pertinent Objective GAIT/FUNCTIONAL MOBILITY Single leg stance: 5 seconds bilaterally no increase in pain Squat: no increase in pain KNEE ROM Left: 0-120 Right: 0-120 HIP ROM Grossly tested WNL LLE MMT: Hip flexion: R 4/5 L 4/5 Hip abduction: R 4/5 L 4/5 Hip extension: R 4/5 L 4/5 Knee flexion: R 4/5 L 4/5 Knee extension: R 4/5 L 4/5 SPECIAL TEST -Anterior drawer: negative -Srikanth test: negative -Posterior Drawer: negative -Valgus Test: pain on medial aspect of knee -Varus Test: negative JOINT MOBILITY/PALPATION Moderate tenderness noted to palpation of medial joint line Left: Superior aspect of patella circumference 19 inches, inferior aspect 17 inches Right: Superior aspect of patella circumference 19 inches, inferior aspect 16.5 inches TX: Access Code: [email or web address] URL: [email or web address] Date: 05/11/2023 Prepared by: Gricel Sloan Exercises - Supine Heel Slide - 1 x daily - 7 x weekly - 3 sets - 10 reps - Supine Quadricep Sets - 1 x daily - 7 x weekly - 3 sets - 10 reps - Active Straight Leg Raise with Quad Set - 1 x daily - 7 x weekly - 3 sets - 10 reps Functional Test Performed & Score 20/80 A score increase of 6 points shows a significant improvement in lower extremity function. Assessment Assessment/Impression Pt is a 73 year old female who presents with concerns of right knee pain. Patient also has notable objective findings including tenderness to palpation, swelling, and decreased strength which are also likely contributing to the problem. Patient is a good candidate for skilled therapy to target deficits described above. Skilled PT intervention is necessary for use of therapeutic exercise manual therapy, neuromuscular re- education, gait training, and therapeutic activity. Functional impairments include difficulty with walking and doing yoga. See appropriate sections of PT eval for complete list of goals and POC . D/C plan and criteria is for pt to achieve the goals as listed below or until max rehab potential is met. Pt was agreeable with plan of care and goals established. Primary Functional Limitations walking yoga Plan of Care Rehabilitation Potential Good Physical Therapy Goals ST.Pt will demonstrate independence in performance of home exercise program with the use of video and/or handouts in order to optimize functional mobility and reduce risk for re-injury. 2.Pt will demonstrate consistent HEP compliance to ensure progress in reaching established goals during course of care. 3.Patient will be able to sit for up to one hour without pain. 4.Patient will report pain levels <2/10 with all activities in order to improve functional mobility at home, work and during functional leisure activities. LT.Patient is able to sleep without waking more than one time due to pain in a 6-8 hour time frame. 6.Patient will be able to walk up to one mile without pain. 7.Pt will be able to ascend/ descend 1 flight of stairs in order to perform ADLs pain free. 8.Pt will exhibit 9 pt improvement in LEFS Outcome measure to demonstrate functional improvement and progress towards goals Coordination/Communication With Referral Source Treatment Plan/Direct Interventions Manual Therapy,Therapeutic Activities,Therapeutic Exercises Patient Will Be Discharged From Therapy Independently Progressing Evaluation Billing Untimed Code Treatment Minutes 30 Complexity Low Certification Information Physician Comment/Change : Physician NPI Number #
== END 2023-09-17 11:27 | disposition home or self-care (01) ==
PROVIDERS: PCP Internal Medicine; Visit Provider Physician Assistant Surgical
DX: M25.561 Pain in right knee (principal); Z51.89 Encounter for other specified aftercare
CPT/HCPCS: 97035; 97110; 97140; 97161

== ENCOUNTER 2024-02-03 13:26 | Outpatient (CLI) | payer MEDICARE, OTHER, SELFPAY ==
--- OUTSIDE RECORDS SUMMARY | 2024-02-03 13:28 | XMS_ITS | Clinical Summary ---
Author Organization [facility] Address [place], [place] [address] Care Team Providers Care Energy Efficiency Engineer Name Role Phone Adele Mishra MD Primary Care Provider [phone] Allergies Active Allergy Reactions Criticality Noted Date Comments Ciprofloxacin Itching 06/03/2016 Doxycycline Other - Describe In Comment Field,*Unknown - Childhood Rxn High 01/06/2017 Had it for an eye infection and after 10 days it irritated her esophagus Metronidazole In Nacl (Iso-Os) Itching 06/03/2016 Medications Medication Sig Dispensed Refills Start Date End Date Status levothyroxine (SYNTHROID) 75 mcg tabletIndication s:hypothyroidism Take 75 mcg by mouth before breakfast. Indications: hypothyroidism Active atorvastatin (LIPITOR) 10 mg tabletIndication s:hypercholester olemia Take 10 mg by mouth once daily. Indications: hypercholesterolemia Active guar gum (BENEFIBER) powd Take 1 Tbsp by mouth once daily. MIX IN 4 OZ BEVERAGE/SOFT FOOD. 0 12/02/2017 Active multivitamin (MVI) tablet Take 1 tablet by mouth once daily. 0 12/02/2017 Active lisinopriL (PRINIVIL; ZESTRIL) 40 mg tablet 04/04/2021 Active polyethylene glycol-electroly te (GOLYTELY) 236-22.74-6.74 -5.86 gram suspensionIndica tions:Encounter for screening colonoscopy Drink 3 quarts the day before procedure and 1 quart 6 hours before procedure 4000 mL 05/10/2021 Active Social History Tobacco Use Types Packs/Day Years Used Date Smoking Tobacco: Never Smokeless Tobacco: Never Tobacco Cessation:Counseling Given: Yes Alcohol Use Standard Drinks/Week Comments Yes 1 (1 standard drink = 0.6 oz pure alcohol) occasionally glass of wine weekly Social Connections Answer Date Recorded Frequency of Communication with Friends and Fami ly Not on file 07/20/2021 Financial Resource Strain Answer Date R ecorded Difficulty of Paying Living Expenses Not on file 07/20/2021 Difficulty of Paying Living Expenses Not on file 07/20/2021 Sex and Gender Information Value Date Recorded Sex Assigned at Not on file Gender Identity Not on file Sexual Orientation Not on file Obstetrics History Last Filed Vital Signs Vital Sign Reading Time Taken Comments Blood Pressure 138/67 04/17/2021 2:08 PM CDT Pulse 64 04/17/2021 2:08 PM CDT Temperature 36.4 ??C (97.6 ??F) 06/03/2016 11:[address] Respiratory Rate 16 12/02/2017 12:53 PM CDT Oxygen Saturation 97% 04/17/2021 2:08 PM CDT Inhaled Oxygen Concentration - - Weight 87.4 kg (192 lb 9.6 oz) 04/17/2021 2:08 P M CDT Height 171.5 cm (5' 7.5) 12/02/2017 12:53 PM CD T Body Mass Index 29.72 12/02/2017 12:53 PM CDT Plan of Treatment Health Maintenance Due Date Last Done Comments Tdap 1961 Depression screening for age 12+ 1962 Hepatitis C screening for ag e 18-79 1968 Tetanus booster 1970 Lipids for age 45-75 1995 Mammogram for age 45-75 1995 Zoster (shingles) series for age 50+ (1 of 2) 2000 DEXA/DXA scan for age 65+ 2015 Medicare Wellness for age 65+ 2015 Pneumococcal series for age 65+ (1 of 1 - PCV) 2015 BMI (ht and wt on same day) for age 18+ 12/02/2018 12/02/2017 COVID-19 vaccine series (2022- season) 2023 05/06/2022, 05/16/2021, 10/12/2020, Additional history exists Influenza for age 65+ 03/20/2024 Colonoscopy through age 75 06/03/2031 06/03/2021, Procedures Procedure Name Priority Date/Time Associated Diagnosis Comments COLONOSCOPY DIAGNOSTIC Routine 06/03/2021 12:00 AM FORMING ACID DUMPER Chronic diarrhea from Last 3 Months or Most Recently Relevant to Health Maintenance Results * COLONOSCOPY DIAGNOSTIC (06/03/2021 12:00 AM FORMING ACID DUMPER) Nathan Contreras MD GI PROCEDURE ORD from Last 3 Months or Most Recently Relevant to Health Maintenance Care Teams Energy Efficiency Engineer Relationship Specialty Start Date End Date Adele Mishra MD [address] [place] [address] PCP - General Internal Medicine 12/01/17
--- NOTE | 2024-02-03 13:45 | MR_ITS ---
[address] [address] Phone:?[phone] Fax:?[phone] Referring Physician Information: Eneida Cerna [address] [facility] [address] Phone:?[phone] Fax:?[phone] Patient:Shiloh Dia D.O.B:?1950 Sex:?Female Phone:?[phone] [facility] MRN:?[id number] Exam Date:?02/03/2024 EXAM: MRI of the RIGHT KNEE, without contrast CLINICAL INFORMATION: Female, 73 years old, with knee pain INDICATION: Suspected internal derangement, medial meniscus tear PRIOR SURGERY: None reported. PLAIN FILMS: Knee radiographs 04/24/2023. COMPARISONS: No prior MRIs available. TECHNICAL INFORMATION: Using a 1.5T MR scanner and a localizing surface coil: sagittals: PD, PDFS coronals: PD, T2FS axials: PD, PDFS SEDATION: None CONTRAST: None FINDINGS: Knee joint: Effusion: Moderate sized right knee effusion. Popliteal cyst: None. Loose bodies: None. Subcutaneous and extra-articular soft tissues: Mild prepatellar subcutaneous soft tissue edema. Ligaments: ACL: Intact ACL anteromedial and posterolateral bundles, without sprain or tear. PCL: Intact PCL, without acute or chronic injury. MCL: The MCL is attenuated. There is intraligamentous ganglion associated with the proximal superficial fibers. LCL: Intact LCL, without injury. Posterolateral corner: No posterolateral corner soft tissue injury. Popliteus, biceps femoris, iliotibial band, popliteofibular ligament and lateral gastrocnemius are intact. Posteromedial corner: No posteromedial corner soft tissue injury. Semimembranosus, pes anserine tendons and posterior oblique ligament are without injury, tendinopathy or bursitis. Extensor mechanism: Patellar tendon: Intact, without tendinopathy. Quadriceps tendon: Intact, without tendinopathy. Retinacula: Medial and lateral retinacula are intact. Fat pads: Unremarkable infrapatellar Hoffa's, quadriceps and prefemoral fat pads. Medial compartment: Medial meniscus: Medial meniscus is abnormal in appearance. There is horizontal tearing involving the undersurface throughout the body segment, with 5 mm peripheral meniscal extrusion, and 2 mm inferior extension of torn meniscal tissue into the medial gutter (coronal series 8 image 20). Horizontal undersurface tearing extends throughout the posterior horn, with horizontal cleavage tearing at the level of the posterior horn/root (sagittal series 6 image 20). Intrasubstance and undersurface tearing extends to level of the posterior root, without complete posterior root disruption. Medial femoral condyle: Broad-based grade II/III chondral thinning of the weightbearing surfaces of the medial femoral condyle. Medial tibial plateau: Grade II/III chondral thinning along the posterior weightbearing medial tibial plateau. Lateral compartment: Lateral meniscus: Apical free edge fraying along the posterior horn of the lateral meniscus, without displaced lateral meniscal flap. Additional short segment apical free edge blunting and tearing at the level of the body segment. Lateral femoral condyle: Broad-based grade 2 chondral thinning of the lateral femoral condyle articular cartilage. Lateral tibial plateau: No chondromalacia or osteochondral abnormality. Patellofemoral joint: Patella: There is a full-thickness chondral defect involving the superior medial patellar facet extending to the mid central median ridge, measuring approximately 2.2 x 1.7 cm underlying cystic change and marrow edema. Grade 3 chondral thinning is seen along the inferior medial patellar facet and central midline ridge. Trochlea: No chondromalacia or osteochondral abnormality. Proximal tibiofibular joint: Unremarkable, without evidence of ligament sprain injury, joint effusion or adjacent marrow edema. Bones: Focal marrow edema in the peripheral medial tibial plateau in the region of meniscal tearing, likely reactive. No stress/occult fracture. IMPRESSION: 1. Broad-based undersurface tearing of the medial meniscus as described above with peripheral meniscal extrusion and inferior extension into the medial gutter. Tearing extends to the level of the posterior root without complete posterior root disruption. 2. Short segment apical free edge tearing along the body and posterior horn of the lateral meniscus. 3. Full-thickness chondral defect involving the superior medial and central patella measuring 2.2 x 1.7 cm underlying cystic change. 4. Broad-based grade II/III chondromalacia of the medial femoral condyle posterior medial tibial plateau. 5. Mild chondral thinning of the lateral femoral condyle articular cartilage. 6. Suspected residua of chronic incomplete sprain injury of the superficial MCL. 7. Moderate size knee joint effusion. KME Electronically signed on 02/03/2024 6:59:00 PM by Africa Lynch M.D.
== END 2024-02-03 13:27 | disposition home or self-care (01) ==
LOC: MRI 13:27
PROVIDERS: PCP Internal Medicine; Visit Provider Physician Assistant Surgical
DX: M25.561 Pain in right knee (principal); S83.221A Peripheral tear of medial meniscus, current injury, right knee, initial encounter; M94.261 Chondromalacia, right knee; S83.411A Sprain of medial collateral ligament of right knee, initial encounter; M17.11 Unilateral primary osteoarthritis, right knee; M25.461 Effusion, right knee
CPT/HCPCS: 73721

== ENCOUNTER 2024-02-08 07:50 | Outpatient (CLI) | payer MEDICARE, OTHER, SELFPAY | END 2024-02-08 07:51 | disposition home or self-care (01) | LOC: NFLDREF 02-10 06:53 | PROVIDERS: PCP Internal Medicine; Referring Provider Internal Medicine; Visit Provider Internal Medicine | DX: R73.03 Prediabetes (principal); E03.9 Hypothyroidism, unspecified; E78.5 Hyperlipidemia, unspecified; I10 Essential (primary) hypertension | CPT/HCPCS: 80053; 80061; 84443 ==

== ENCOUNTER 2024-03-22 13:45 | Outpatient (RCR) | payer MEDICARE, OTHER, SELFPAY ==
--- NOTE | 2023-10-19 10:26 | PT.OPEX ---
PT [place] Outpatient Eval PT [facility] Outpatient Eval Start: 10/19/23 07:03 Freq: Status: Active Protocol: Document 10/19/23 07:03 MLS (Rec: 10/19/23 10:19 MLS [id number]) E-signed By Gricel Sloan DPT Physical Therapy Outpatient Evaluation Insurance Information Recert Due Date 01/16/24 Insurance Name Medicare B Medical Diagnosis M70.50 other bursitis of knee M67.929 unspecified disorder of synovium and tendon, unspecified upper arm M67.919 unspecified disorder of synovium and tendon, unspecified shoulder Treating Diagnosis Right shoulder bicep tendinopathy, rotator cuff tendinopathy, right knee pes anserine bursitis Referring MD Stefan Cortés PA-C Subjective Subjective Patient is a 73 year old female who presents to physical therapy with signs and symptoms consistent with right knee pes anserine bursitis, right shoulder bicep tendinopathy and right rotator cuff tendinopathy. She states that for a long time her right knee had been doing well. She states that she was making beds for her grandchildren and pulled some heavy bedding and that is when she started having right shoulder pain. She reports that happened the end of August. She reports that it hasn't gotten worse, but the pain is constant. She had xrays which showed arthritis. She reports that her knee started acting up in August as well. She reports that she has pain when she walks. She reports that the last couple days she has a sharp pain in her knee when she walks. She reports that she is still doing her exercises every day. No complaints of numbness or tingling into her arm or leg. She is right handed. Aggravating factors include: walking, reaching, grabbing something, getting dressed, sleeping. Alleviating factors include: not moving. Significant past medical history includes arthritis, previous left kidney cancer. Patient would like to have less pain and return to normal daily activities through physical therapy sessions. She is leaving for [facility] to see the [facility] for ten days and will return after her trip. Pain Comments Today: 5/10 on a 0-10 pain scale with 10 = extreme pain At its worst: 6-7/10 At its best: 3/10 Current Work Status Retired Objective Other/Pertinent Objective GAIT/FUNCTIONAL MOBILITY Single leg stance: 10 seconds, no pain Squat: no pain KNEE ROM Left: Grossly tested WNL Right: Extension/Flexion: 0-130 HIP ROM Grossly tested WNL B SHOULDER AROM Left: Grossly tested WNL Right: Flexion: 170 Abduction: 100 Internal Rotation: 60 External Rotation: 20 Right shoulder PROM: Flexion: 180 Abduction: 180 !R (90 degrees abduction): 90 ER (90 degrees abduction): 30 LLE MMT: Hip flexion: R 4/5 L 5/5 Hip abduction: R 4/5 L 5/5 Hip extension: R 4/5 L 5/5 Knee flexion: R 5/5 L 5/5 Knee extension: R 5/5 L 5/5 NECK/SHOULDER MMT: Shoulder shrug: R 5/5 L 5/5 Shoulder flexion: R 4/5 L 5/5 Shoulder abduction: R 4/5 L 5/ 5 Shoulder External Rotation: R 5/5 L 5/5 Shoulder Internal Rotation: R 5/5 L 5/5 Elbow flexion: R 5/5 L 5/5 Elbow extension R 5/5 L 5/5 SPECIAL TEST -Anterior drawer: negative -Posterior Drawer: negative -Valgus Test: negative -Varus Test: negative -Pablo test: negative Shoulder impingement -Lewis Vic Test: positive -Neer Test: positive -Horizontal adduction test: positive Rotator cuff tendonitis -Speeds test(biceps): positive -Empty can(Supra): positive -Lift off test (subscap): negative -Obriens test: positive Joint Mobility/Palpation: Moderate tenderness to bicipital groove of right shoulder, minimal tenderness to medial joint line of right knee, moderate tenderness to right knee pes anserine bursa region TX: Instructed to do 5 min 3 x/day - mix of all stretches Access Code: [email or web address] URL: [email or web address] Date: 10/19/2023 Prepared by: Gricel Sloan Exercises - Supine Shoulder Flexion AAROM with Hands Clasped - 1 x daily - 7 x weekly - 3 sets - 10 reps - Seated Shoulder Flexion Towel Slide at Table Top - 1 x daily - 7 x weekly - 3 sets - 10 reps - Seated Shoulder Abduction Towel Slide at Table Top - 1 x daily - 7 x weekly - 3 sets - 10 reps - Standing Shoulder Flexion Wall Walk - 1 x daily - 7 x weekly - 3 sets - 10 reps - Standing Shoulder Abduction Slides at Wall - 1 x daily - 7 x weekly - 3 sets - 10 reps - Sidelying Shoulder External Rotation - 1 x daily - 7 x weekly - 3 sets - 10 reps Functional Test Performed & Score 40 DASH score LEFS 59/80 A score increase of 6 points shows a significant improvement in lower extremity function. Assessment Assessment/Impression Pt is a 73 year old female who presents with concerns of right shoulder bicep tendinopathy, rotator cuff tendinopathy, and right knee pes anserine bursitis. Patient also has notable objective findings including limited ROM, tenderness to palpation, and decreased strength which are also likely contributing to the problem. Patient is a good candidate for skilled therapy to target deficits described above. Skilled PT intervention is necessary for use of therapeutic exercise manual therapy, neuromuscular re- education, and therapeutic activity. Functional impairments include difficulty with: sleeping, driving, exercising, walking, standing and ADLS. See appropriate sections of PT eval for complete list of goals and POC . D/C plan and criteria is for pt to achieve the goals as listed below or until max rehab potential is met. Pt was agreeable with plan of care and goals established. Primary Functional Limitations standing walking driving exercising ADLs sleeping Plan of Care Rehabilitation Potential Good Physical Therapy Goals Within 10-12 weeks: 1.Pt will demonstrate independence in performance of home exercise program with the use of video and/or handouts in order to optimize functional mobility and reduce risk for re-injury. 2.Pt will demonstrate consistent HEP compliance to ensure progress in reaching established goals during course of care. 3.Patient will be able to drive for up to one hour without pain. 4.Patient will report pain levels <2/10 with all activities in order to improve functional mobility at home, work and during functional leisure activities. 5.Patient is able to sleep without waking more than one time due to pain in a 6-8 hour time frame. 6.Patient will be able to walk up to one mile without pain. 7.Patient will be able to bend and lift household items from the floor to shoulder height to perform ADLs without pain. 8.Pt will be able to ascend/ descend 1 flight of stairs in order to perform ADLs pain free. 9.Pt will exhibit 5 pt improvement in DASH and LEFS to demonstrate functional improvement and progress towards goals Coordination/Communication With Referral Source Treatment Plan/Direct Interventions Joint Mobilization,Manual Therapy,Neuromuscular Re-ed, Therapeutic Activities, Therapeutic Exercises, Ultrasound Patient Will Be Discharged From Therapy Independently Progressing Evaluation Billing Untimed Code Treatment Minutes 45 Complexity Moderate Certification Information Physician Comment/Change : Physician NPI Number #
== END 2024-07-05 12:56 | disposition home or self-care (01) ==
PROVIDERS: PCP Internal Medicine; Visit Provider Physician Assistant Surgical
DX: M70.50 Other bursitis of knee, unspecified knee (principal); M67.929 Unspecified disorder of synovium and tendon, unspecified upper arm; M67.919 Unspecified disorder of synovium and tendon, unspecified shoulder; Z51.89 Encounter for other specified aftercare
CPT/HCPCS: 97035; 97110; 97140; 97162

== ENCOUNTER 2024-05-30 09:59 | Outpatient (CLI) | payer MEDICARE, OTHER, SELFPAY ==
--- OUTSIDE RECORDS SUMMARY | 2024-05-30 10:05 | XMS_ITS | Referral Summary ---
Author Organization [facility] Address [address] [place] [address] Care Team Providers Care Grievance Coordinator Name Role Phone Patty Dailey Primary Care Provider [phone] Allergies Active Allergy Reactions Criticality Noted Date Comments Ciprofloxacin PRURITUS 01/22/2015 Doxycycline Other (See Comments) 06/04/2017 Had it for an eye infection and after 10 days it irritated her esophagus Metronidazole PRURITUS Medium 01/22/2015 Medications Medication Sig Dispensed Refills Start Date End Date Status levothyroxine (SYNTHROID, LEVOTHROID) 75 MCG tablet Take 75 mcg by mouth daily. Active [place]-3 Fatty Acids (FISH OIL) 1200 MG capsule Take 1,200 mg by mouth daily. Active aspirin 81 MG tablet Take 81 mg by mouth three times a week. Active Multiple Vitamins-Minerals (MULTI FOR HER PO) Take 1 tablet by mouth daily. Active lisinopril (ZESTRIL) 20 MG tablet Take 20 mg by mouth daily. Active Psyllium (METAFIBER PO) Powder packet. Takes one packet daily. Active atorvastatin (LIPITOR) 10 MG tablet Take 10 mg by mouth daily. Active Probiotic Product (FLORAJEN3) capsuleIndications:I rritable bowel syndrome with diarrhea Take 1 capsule by mouth daily. 09/03/2017 Active hyoscyamine (LEVSIN SL) 0.125 MG sublingual tabletIndications:Ir ritable bowel syndrome with diarrhea Place 1 tablet under the tongue every 6 hours as needed for Cramping or Diarrhea. 60 tablet 5 09/03/2017 Active Active Problems Problem Noted Date Diagnosed Date Irritable bowel syndrome with diarrhea 7 Resolved Problems Problem Noted Date Diagnosed Date Resolved Date Abdominal bloating 06/04/2017 8 Flatulence 06/04/2017 09/03/2017 Abdominal cramping 06/04/2017 8 Intermittent diarrhea 06/04/20172017 Social History Tobacco Use Types Packs/Day Years Used Date Smoking Tobacco: Never Smokeless Tobacco: Never Alcohol Use Standard Drinks/Week Comments Yes 0 (1 standard drink = 0.6 oz pure alcohol) maybe a glass of wine every couple of weeks. Inadequate Housing Answer Date Recorded Social Determinants: Housing (Overall Score Help er) 0 03/14/2019 Sex and Gender Information Value Date Recorded Sex Assigned at Not on file Gender Identity Not on file Sexual Orientation Not on file Last Filed Vital Signs Vital Sign Reading Time Taken Comments Blood Pressure 130/72 09/03/2017 9:38 AM ASSET PROTECTION OFFICER Pulse 70 09/03/2017 9:38 AM ASSET PROTECTION OFFICER Temperature - - Respiratory Rate - - Oxygen Saturation - - Inhaled Oxygen Concentration - - Weight 86.2 kg (190 lb 1.6 oz) 09/03/2017 9:38 A M ASSET PROTECTION OFFICER Height 170.8 cm (5' 7.25) 09/03/2017 9:38 AM CS T Body Mass Index 29.55 09/03/2017 9:38 AM ASSET PROTECTION OFFICER Plan of Treatment Not on file Procedures Procedure Name Priority Date/Time Associated Diagnosis Comments COLONOSCOPY DIAGNOSTIC Routine 01/23/2016 from Last 3 Months or Most Recently Relevant to Health Maintenance Results * COLONOSCOPY DIAGNOSTIC (01/23/2016) Outside Provider SURGERY & PROCEDURES from Last 3 Months or Most Recently Relevant to Health Maintenance Insurance Payer Benefit Plan / Group Subscriber ID Effective Dates Phone Address Type MEDICARE PARTA AND B [id number] 2017-Pres ent [address] [place] [address] MEDICARE [facility] [id number] 2015-Pre se nt [address] [place] [address] [facility] PLUS/[id number] 2015-Prese nt [address] [place] [address] [facility] Care Teams Grievance Coordinator Relationship Specialty Start Date End Date Patty Dailey APNP [address] [place] [phone] PCP - General Nurse Practitioner - Family 01/22/15
--- OUTSIDE RECORDS SUMMARY | 2024-05-30 10:05 | XMS_ITS | Clinical Summary ---
Author Organization [facility] Address [place], [place] [address] Care Team Providers Care Laboratory Clerk Name Role Phone Adele Mishra MD Primary Care Provider [phone] Allergies Active Allergy Reactions Criticality Noted Date [...] age 18+ 12/02/2018 12/02/2017 COVID-19 vaccine series (2023- season) 2024 05/06/2022, 05/16/2021, 10/12/2020, Additional history exists Influenza for age 65+ 03/20/2024 Colonoscopy through age 75 06/03/2031 06/03/2021, Procedures Procedure Name Priority Date/Time Associated Diagnosis Comments COLONOSCOPY DIAGNOSTIC Routine 06/03/2021 12:00 AM FERRY TERMINAL SUPERVISOR Chronic diarrhea from Last 3 Months or Most Recently Relevant to Health Maintenance Results * COLONOSCOPY DIAGNOSTIC (06/03/2021 12:00 AM FERRY TERMINAL SUPERVISOR) Nathan Contreras MD GI PROCEDURE ORD from Last 3 Months or Most Recently Relevant to Health Maintenance Care Teams Laboratory Clerk Relationship Specialty Start Date End Date Adele Mishra MD [address] [place] [address] PCP - General Internal Medicine 12/01/17
--- OUTSIDE RECORDS SUMMARY | 2024-05-30 10:05 | XMS_ITS | Clinical Summary ---
Author Organization [facility] Address [address] [place] [address] Care Team Providers Care Soybean Specialties Cook Name Role Phone Pcp, None Primary Care Provider Unavailabl e Allergies Active Allergy Reactions Criticality Noted Date Comments Ciprofloxacin SKIN - pruritis 01/29/2015 Was on cipro and metronidazole together--> terrible itching (unsure which medication caused it) Doxycycline UNKNOWN 01/06/2017 Metronidazole SKIN - pruritis 01/29/2015 Was on cipro and metronidazole together--> terrible itching (unsure which medication caused it) Medications levothyroxine (LEVOXYL OR SYNTHROID) 75 MCG tablet Take 75 mcg by mouth every morning before breakfast. Active aspirin 81 MG tablet Take 81 mg by mouth daily. q Th, Sat and Tu Active Multiple Vitamins-Minera ls (MULTI-VITAMIN/ MINERALS PO) Take 1 tablet by mouth daily. Active [place]-3 Fatty Acids (FISH OIL) 1200 MG CAPS Take 1 capsule by mouth daily. Active lisinopril (PRINIVIL OR ZESTRIL) 20 MG tabletIndicatio ns:Hypertension Take 20 mg by mouth daily. Indications: High Blood Pressure Active Wheat Dextrin (BENEFIBER) POWD Take by mouth daily. Active atorvastatin (LIPITOR) 10 MG tablet Take 10 mg by mouth daily. Active Active Problems Problem Noted Date Diagnosed Date Renal mass 03/21/2015 Left renal mass 03/21/2015 Malignant neoplasm of left kidney 03/21/2015 Cancer Staging:Clinical:Stage I(T1a, N0, M0) - Unsigned Pathologic:Stage Unknown(T1a, NX, cM0) - Unsigned Unspecified disorder of kidney and ureter 2014 Immunizations Name Administration Dates Next Due (Tdap)Tetanus/reduced Diphtheria/Pertussis, adul t 04/12/2014 Influenza 05/19/2016,05/19/2014 Influenza, trivalent PF 04/19/2015 Pneumococcal Polysaccharide (PPV23) 05/19/2016,0 03/22/2015 zoster live (ZOSTAVAX) vaccine 05/21/2015 Family History Medical History Relation Name Comments Allergic Rhinitis Negative Hemophilia and Other Blood Disorders Negative Social History Tobacco Use Types Packs/Day Years Used Date Smoking Tobacco: Never Smokeless Tobacco: Never Alcohol Use Standard Drinks/Week Comments Yes 1 (1 standard drink = 0.6 oz pur e alcohol) 1 glass of wine twice a month Comments No Sex and Gender Information Value Date Recorded Sex Assigned at Not on file Legal Sex Female 10:03 AM CDT Gender Identity Not on file Sexual Orientation Not on file Last Filed Vital Signs Vital Sign Reading Time Taken Comments Blood Pressure 162/85 01/05/2018 12:53 PM CDT Pulse 63 01/05/2018 12:51 PM CDT Temperature 36.6 ??C (97.8 ??F) 01/05/2018 12:51 PM C DT Respiratory Rate 16 01/05/2018 12:51 PM CDT Oxygen Saturation 96% 01/05/2018 12:51 PM CDT Inhaled Oxygen Concentration - - Weight 87.7 kg (193 lb 5.5 oz) 01/05/2018 12:51 PM CDT Height 172 cm (5' 7.72) 01/06/2017 2:06 PM CDT Body Mass Index 29.64 01/06/2017 2:06 PM CDT Plan of Treatment Health Maintenance Due Date Last Done Comments CT Colonography 1950 FIT-DNA 1950 FOBT / FIT 1950 Routine Physical 1950 Sigmoidoscopy 1950 Depression Screening 1962 Lipid Panel 1995 Zoster Vaccines (2 of 3) 07/16/2015 05/21/2015 Pneumococcal Immunization 65 + (2 of 2 - PCV) 05/19/2017 05/19/2016, 03/22/2015 COVID-19 Vaccine ( - 2023-2 5 season) 2024 Seasonal Flu Immunization (#1) 03/20/2024 1 , 04/19/2015, 05/19/2014 DTaP/Tdap/Td Vaccines (2 - T d or Tdap) 04/12/2024 04/12/2014 RSV Vaccine Adults - Pregnan t (Abrysvo) and Older Adults (1 - 1-dose 75+ series) 2025 Colonoscopy 01/22/2026 01/23/2016 Colorectal Cancer Screening 01/22/2026 HIB Vaccines Aged Out No longer eligi ble based on patient's age to complete this topic Hepatitis A Vaccines Aged Out No long er eligible based on patient's age to complete this topic Meningococcal Vaccine Aged Out No zuleyma елена eligible based on patient's age to complete this topic RSV Immunization <20 Months Aged Out No longer eligible based on patient's age to complete this topic Rotavirus Vaccines Aged Out No longer eligible based on patient's age to complete this topic Medical Devices Implanted Type Area Mechanical Engineering Teacher Device Identifier Shelf Expiration Date Model / Serial / Lot Evicel 5ml - [id number] Implanted:Qt y: 1 on 03/21/2015 by Ricki Cooley MD at [facility] Implants Left: Kidney J AND J ETHICON 02/17/2016 [id number] / / [id number] Floseal 10ml - [id number] Implanted:Qt y: 1 on 03/21/2015 by Ricki Cooley MD at [facility] Implants Left: Kidney [employer] [place] [employer] 05/19/2016 [id number] / / [id number] Insurance MEDICARE [employer] [place] MEDICARE [facility] MEDICARE [place] MEDICARE [facility] [address] [id number] MEDICARE [place] Advance Directives Documents on File Type Date Recorded Patient President Celebrity Acquistion Expl anation Advance Directives and Vito g Will 02/06/2015 7:20 AM 01-28-2015 * Full Code (Latest Code Status on File) Date Activated Date Inactivated Comments 03/21/2015 5:52 PM 03/22/2015 5:25 PM Care Teams Soybean Specialties Cook Relationship Specialty Start Date End Date Pcp, None PCP - General Internal Medicine 01/06/17
--- OUTSIDE RECORDS SUMMARY | 2024-05-30 10:05 | XMS_ITS | Clinical Summary ---
Author Organization [facility] Address [address] [place] [address] Care Team Providers Care Cotton Buyer Name Role Phone Patty Dailey Primary Care Provider + [phone] Allergies Active Allergy Reactions Criticality Noted Date Comments Ciprofloxacin PRURITUS 01/22/2015 Doxycycline Other (See Comments) 06/04/2017 Had it for an eye infection and after 10 days it irritated her esophagus Metronidazole PRURITUS Medium 01/22/2015 Medications Medication Sig Dispensed Refills Start Date End Date Status levothyroxine (SYNTHROID, LEVOTHROID) 75 MCG tablet Take 75 mcg by mouth daily. Active [place]-3 Fatty Acids (FISH OIL) 1200 MG capsule [...] Abdominal cramping 06/04/2017 8 Intermittent diarrhea 06/04/20172017 Surgical History Surgery Date Site/Laterality Comments CHOLECYSTECTOMY TONSILLECTOMY AND ADENOIDECTOMY BREAST BIOPSY BUNIONECTOMY LEFT COLECTOMY 09/16/2016 Left left colon resection for diverticulitis/Colt Alexandra MD ([facility]) Medical History Medical History Date Comments Essential (primary) hypertension Hormone disorder hypothyroidism Social History Tobacco Use Types Packs/Day Years [...] Comments Blood Pressure 130/72 09/03/2017 9:38 AM WARP DOFFER Pulse 70 09/03/2017 9:38 AM WARP DOFFER Temperature - - Respiratory Rate - - Oxygen Saturation - - Inhaled Oxygen Concentration - - Weight 86.2 kg (190 lb 1.6 oz) 09/03/2017 9:38 A M WARP DOFFER Height 170.8 cm (5' 7.25) 09/03/2017 9:38 AM CS T Body Mass Index 29.55 09/03/2017 9:38 AM WARP DOFFER Plan of Treatment Health Maintenance Due Date Last Done Comments Depression Screening 1962 Breast Cancer Screening 1990 CT Colonography 1995 Cologuard 1995 Fecal Occult Blood 1995 Sigmoidoscopy 1995 Osteoporosis Screening 2015 Shingles Vaccine (2 of 3) 07/16/2015 05/21/2015 Pneumococcal Vaccine 65+ (2 of 2 - PCV) 05/19/2017 05/19/2016, 03/22/2015 COVID-19 Vaccine ( - 2023-2 5 season) 2024 Influenza Vaccine (#1) 2024 6, 04/19/2015, 05/19/2014 DTaP/Tdap/Td Vaccine (2 - Td or Tdap) 04/12/2024 04/12/2014 Colonoscopy 01/22/2026 01/23/2016 Colorectal Cancer Screen 01/22/2026 HPV Vaccine Aged Out No longer eligi ble based on patient's age to complete this topic Hepatitis B Vaccine (For Physician/APC Discussion) Aged Out No longer elig ible based on patient's age to complete this topic Meningococcal Vaccine Aged Out No zuleyma елена eligible based on patient's age to complete this topic Procedures Procedure Name Priority Date/Time Associated Diagnosis Comments COLONOSCOPY DIAGNOSTIC Routine 01/23/2016 from Last 3 Months or Most Recently Relevant to Health Maintenance Results * COLONOSCOPY DIAGNOSTIC (01/23/2016) Outside Provider SURGERY & PROCEDURES from Last 3 Months or Most Recently Relevant to Health Maintenance Care Teams Cotton Buyer Relationship Specialty Start Date End Date Patty Dailey APNP [address] [place] [place] [phone] PCP - General Nurse Practitioner - Family 01/22/15
--- NOTE | 2024-05-30 10:15 | CRLHL7_ITS ---
For Patients: As a result of the Cures Act, medical imaging exams and procedure reports are released immediately into your electronic medical record. You may view this report before your referring provider. If you have questions, please contact your health care provider. BILATERAL SCREENING MAMMOGRAM WITH COMPUTER-AIDED DETECTION AND TOMOSYNTHESIS TECHNIQUE: CC and MLO views were obtained. These mammographic images have been obtained using full-field digital technique. These mammographic images were interpreted with the benefit of computer-aided detection. Breast Tomosynthesis was used in this interpretation. COMPARISON FILM: 05/28/23, 03/04/22, 02/28/21. FINDINGS: There are scattered areas of fibroglandular density IMPRESSION: There is no radiographic evidence for malignancy. ASSESSMENT: BI-RADS Category 1: Negative RECOMMENDATION: Routine screening mammogram in 1 year. A lay language report of this examination will be provided to the patient. Sven Bess M.D. Diagnostic Radiologist [email or web address] HANDY/uzair / bM/Dictated by: Sven Bess MD @ 06/03/2024 10:29:00 AM (Electronically Signed)
== END 2024-05-30 10:00 | disposition home or self-care (01) ==
LOC: MAMMO 10:00
PROVIDERS: PCP Internal Medicine; Visit Provider Internal Medicine
DX: Z12.31 Encounter for screening mammogram for malignant neoplasm of breast (principal)
CPT/HCPCS: 77063; 77067

== ENCOUNTER 2024-07-22 11:06 | Outpatient (CLI) | payer MEDICARE, OTHER, SELFPAY | END 2024-07-22 11:07 | disposition home or self-care (01) | LOC: AMB 07-30 07:06 | PROVIDERS: PCP Internal Medicine; Visit Provider Internal Medicine | DX: R42 Dizziness and giddiness (principal); R11.2 Nausea with vomiting, unspecified | CPT/HCPCS: A0425; A0427 ==

== ENCOUNTER 2024-07-22 11:28 | Emergency (ER) | payer MEDICARE, OTHER, SELFPAY ==
[2024-07-22] VITALS (25 sets, daily range): BP systolic 122–166; BP diastolic 60–77; PULSE 53–59; RESP 16; TEMP 36.1; O2SAT 89–96; BMI 31.3
--- NOTE | 2024-07-22 11:32 | ED_ITS ---
HPI - General Adult General Time Seen by Provider: 11:32 Date Seen: 07/22/24 Chief complaint: Dizziness/Vertigo Stated complaint: Hypertensive Time Seen by Provider: 07/22/24 11:32 Source: patient and RN notes reviewed Mode of arrival: EMS Limitations: no limitations History of Present Illness HPI narrative: Jessica is a very pleasant 74-year-old female with a history of hyperlipidemia, hypertension who comes to the emergency room via EMS after experiencing dizziness, high blood pressure and inability to walk at home today. Patient's last known well was at 0300 hours when she woke up last night. At 0530 she woke up and had a fullness in her right ear. She got up in as she was eating breakfast had the sudden onset of vertigo/room spinning. She has had extreme nausea and had 1 episode of dry heaves since that time. Family at home tried to get her to stand up but she was unable to do so and thus they called EMS. Upon EMS arrival they did give her Zofran 4 mg ODT and moved her to the cot. Blood pressure systolic Odalis was 198 to over 200 at times. Blood sugar was 241. They transported to the [place] ED. Jessica denies chest pain, agrees that the room is still spinning. Is wanting to see keep her eyes closed but is able to move her fingers and toes symmetrically. She has not had this happen to her in the past. Related Data Home Medications ?Medication ?Instructions ?Recorded ?Confirmed multivitamin 1 tab PO QAM 01/21/22 03/18/24 wheat dextrin 3 gram/3.8 gram oral 4 PO DAILY 01/21/22 03/18/24 powder Previous Rx's ?Medication ?Instructions ?Recorded atorvastatin 10 mg tablet 10 mg PO QDAY #90 tabs 02/11/24 levothyroxine 75 mcg tablet 75 mcg PO DAILY #90 tabs 02/11/24 lisinopril 40 mg tablet 40 mg PO DAILY #90 tabs 02/11/24 meclizine 25 mg tablet 25 mg PO TID PRN #30 tabs 07/22/24 prednisone 10 mg tablet 30 mg (3 x 10 mg) PO BID 5 days 07/22/24 #30 tabs valacyclovir 1 gram tablet 1,000 mg PO TID #20 tabs 07/22/24 (Valtrex) Allergies Allergy/AdvReac Type Severity Reaction Status Date / Time doxycycline Allergy Intermediate esophagitis Verified 07/22/24 11:55 ciprofloxacin Allergy Unknown Verified 07/22/24 11:55 metronidazole Allergy Unknown Verified 07/22/24 11:55 Review of Systems Status of ROS: Reports: unobtainable due to medical condition [facility] Medical History History of esophagitis (11/2016) ?Z87.19 - Personal history of other diseases of the digestive system (ICD-10) Surgical History History of cataract surgery ?Z98.49 - Cataract extraction status, unspecified eye (ICD-10) History of incisional hernia repair (07/01/18) ?Z98.890 - Other specified postprocedural states (ICD-10) ?Z87.19 - Personal history of other diseases of the digestive system (ICD-10) History of tonsillectomy ?Z90.89 - Acquired absence of other organs (ICD-10) History of partial surgical removal of colon (09/17/16) ?Z90.49 - Acquired absence of other specified parts of digestive tract (ICD- 10) 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) ?Z90.5 - Acquired absence of kidney (ICD-10) History of cholecystectomy (1996) ?Z90.49 - Acquired absence of other specified parts of digestive tract (ICD- 10) History of bunionectomy of left great toe (2006) ?Z98.890 - Other specified postprocedural states (ICD-10) History of benign breast biopsy (2012) ?Z98.890 - Other specified postprocedural states (ICD-10) Social History What is your current living situation?: I presently have a place to live Problems where you live: no known problems In the past 12 months, utilities in danger of being shut off: no In past 12 months, lack of transportation kept you from medical appts, meetings, work, or getting things needed for daily living: no In the past 12 mos, have been you worried that your food would run out before you had money to buy more?: never true In the past 12 mos, the food you bought just didn't last and you didn't have money to buy more?: never true Smoking Status: Never smoker Do you use any of these nicotine containing products: None How often do you have a drink containing alcohol: monthly or less Alcohol type: wine How many standard drinks containing alcohol do you have on a typical day: 1 or 2 How often do you have six or more drinks on one occasion: Never AUDIT-C Alcohol total score: 1 Non-prescribed substance use: denies use Caffeine: Yes How often does anyone, including family, friends and others, physically hurt you : never How often does anyone, including family, friends and others, insult or talk down to you: never How often does anyone, including family, friends and others, threaten you with harm: never How often does anyone, including family, friends and others, scream or curse at you: never Are you using contraception or practicing any form of control: No service: No Exam Narrative: Exam Narrative: Jessica is keeping her eyes closed and very guarded in her movement. I am able to get her to open her eyes and her pupils are equal round reactive. Face symmetrical. Head is atraumatic normocephalic. Neck is supple. Her speech is normal. She is protecting her airway. Heart with regular rate and rhythm and lungs are clear. Moving all of her extremities. Up post CT she has EOM that is full with 2 beats of nystagmus when deviating to the right. No nystagmus to the left. Head is atraumatic. Face eyebrow raise smile all symmetrical. Strength and motor is intact. NIH SS 0. Const: Vital Signs, click to edit/add: Vital Signs - 24 hr 07/22/24 11:50 07/22/24 12:14 07/22/24 12:15 Temperature 97.0 F L Pulse Rate 57 L 58 L Pulse Rate [Pulse Oximeter] 58 L Respiratory Rate 16 Blood Pressure Blood Pressure [Ri ght Upper Arm] 165/77 H Pulse Oximetry 96 96 96 Oxygen Delivery Me thod Room Air 07/22/24 12:17 07/22/24 12:30 07/22/24 12:32 Temperature Pulse Rate 56 L 56 L 55 L Pulse Rate [Pulse Oximeter] Respiratory Rate Blood Pressure 158/72 H 156/68 H Blood Pressure [Ri ght Upper Arm] Pulse Oximetry 95 93 96 Oxygen Delivery Pr thod 07/22/24 12:33 07/22/24 12:45 07/22/24 12:47 Temperature Pulse Rate 54 L 54 L 55 L Pulse Rate [Pulse Oximeter] Respiratory Rate Blood Pressure 166/75 H Blood Pressure [Ri ght Upper Arm] Pulse Oximetry 96 95 96 Oxygen Delivery Pr thod 07/22/24 12:48 07/22/24 13:00 07/22/24 13:01 Temperature Pulse Rate 55 L 54 L 55 L Pulse Rate [Pulse Oximeter] Respiratory Rate Blood Pressure 148/71 H Blood Pressure [Ri ght Upper Arm] Pulse Oximetry 96 89 92 [facility] 13:15 07/22/24 13:17 07/22/24 13:30 Temperature Pulse Rate 59 L 58 L 57 L Pulse Rate [Pulse Oximeter] Respiratory Rate Blood Pressure 160/65 H Blood Pressure [Ri ght Upper Arm] Pulse Oximetry 92 90 [facility] 07/22/24 13:32 07/22/24 13:45 07/22/24 13:47 Temperature Pulse Rate 56 L 54 L 53 L Pulse Rate [Pulse Oximeter] Respiratory Rate Blood Pressure 150/60 H 131/68 Blood Pressure [Ri ght Upper Arm] Pulse Oximetry 90 [facility] 07/22/24 14:00 07/22/24 14:02 07/22/24 14:15 Temperature Pulse Rate 53 L 53 L 53 L Pulse Rate [Pulse Oximeter] Respiratory Rate Blood Pressure 122/61 Blood Pressure [Ri ght Upper Arm] Pulse Oximetry 90 [facility] 07/22/24 14:16 07/22/24 14:17 07/22/24 14:30 Temperature Pulse Rate 54 L 55 L 56 L Pulse Rate [Pulse Oximeter] Respiratory Rate Blood Pressure 131/63 Blood Pressure [Ri ght Upper Arm] Pulse Oximetry 91 91 90 [facility] 07/22/24 14:31 Temperature Pulse Rate 56 L Pulse Rate [Pulse Oximeter] Respiratory Rate Blood Pressure 128/60 Blood Pressure [Ri ght Upper Arm] Pulse Oximetry 92 Oxygen Delivery Pr thod Documenting provider has reviewed patient's vital signs: yes Course Course ED Course: Patient is med in the back hallway in given the sudden onset of vertigo persistent vertigo at rest we go immediately to CT for head CT and CTA of the head and neck. Differential diagnosis includes labyrinthitis, benign positional vertigo, cerebellar infarct. Will check labs include CBC, comprehensive panel, troponin, EKG. Reevaluation(s) Reevaluation #1: Ativan 0.5 mg IV. She has significant improvement with this medication for full exam. Head CT and CTA reassuring. I do have the pleasure of speaking with Neurology at [facility] and they do suggest MRI without contrast given patient's age which we are able to schedule today. Consultations Consultation #1: At the pleasure of speaking with our ENT in regards to this patient and decreased hearing from the right ear. Does agree with steroids and would suggest addition of Valtrex as well. Vital Signs Vital signs: Initial Vital Signs Temperature 97.0 F L 07/22/24 11:50 Temperature Source Temporal Artery Scan 07/22/24 11:50 Pulse Rate 58 L 07/22/24 11:50 Respiratory Rate 16 07/22/24 11:50 Blood Pressure 165/77 H 07/22/24 11:50 Blood Pressure Mean 106 H 07/22/24 11:50 Blood Pressure Position Semi-Fowlers 07/22/24 11:50 Pulse Oximetry 96 07/22/24 11:50 Oxygen Delivery Method Room Air 07/22/24 11:50 Vital Signs Temperature 97.0 F L 07/22/24 11:50 Pulse Rate 58 L 07/22/24 11:50 Respiratory Rate 16 07/22/24 11:50 Blood Pressure 165/77 H 07/22/24 11:50 Pulse Oximetry 96 07/22/24 11:50 Oxygen Delivery Method Room Air 07/22/24 11:50 Temperature 97.0 F L 07/22/24 11:50 Pulse Rate 56 L 07/22/24 14:31 Respiratory Rate 16 07/22/24 11:50 Blood Pressure 128/60 07/22/24 14:31 Pulse Oximetry 92 07/22/24 14:31 Oxygen Delivery Method Room Air 07/22/24 11:50 Medications Administered Medications: Discontinued Medications Generic Name Dose Route Start Last Admin Trade Name Freq PRN Reason Stop Dose Admin Lorazepam 0.5 mg 07/22/24 12:18 07/22/24 12:33 Lorazepam 2 Mg/Ml Inj IVP 07/22/24 12:19 0.5 mg ONCE ONE Administration Medical Decision Making MDM Narrative Medical decision making narrative: 1. Vertigo-most likely an inner ear process. Head CT, CTA as well as MRI reassuring with no evidence of stroke. I was in contact with neurologist in regards to this patient. At this time patient is improved after initially receiving Zofran we were able to give her Ativan 0.5 mg with significant relief of her symptoms. She will be discharged home with meclizine 25 mg p.o. t.i.d. p.r.n. vertigo. Did discuss [place] is maneuvers that she can have done at physical therapy if she does not improve over the next 4-5 days. A therapy referral form was sent to rehabilitation services. 2. Decreased hearing-I did speak with ENT in regards to this. Does suggest the use of steroids as well as antiviral. Prednisone 30 mg p.o. b.i.d. x5 days and Valtrex 1 g p.o. t.i.d. times 7 days sent to the pharmacy. Recommend follow-up with ENT for recheck next week. 3. Disposition-discussed the importance of slow movement of the head especially when getting up from sleeping overnight. Return to the ER as needed for worsening symptoms. Medical Records Medical records reviewed: Yes I reviewed the patient's medical records Lab Data Lab results reviewed: Yes I reviewed the patient's lab results Labs: Lab Results 07/22/24 07/22/24 Range/Units 11:33 12:00 WBC 8.43 (4.50-11.00) K/uL RBC 4.58 (4.00-5.20) m/uL Hgb 14.6 (12.0-16.0) gm/dL Hct 41.5 (33.0-51.0) % MCV 91 (80-100) fL MCH 32 (26-34) pg MCHC 35 (32-36) gm/dL RDW Coeff of Dejuan 12.1 (11.5-15.5) % Plt Count 194 (140-440) K/uL Neut % (Auto) 76.0 H (42.0-72.0) % Lymph % (Auto) 17.8 L (20-44) % [place] % (Auto) 4.7 (0.0-11.0) % Eos % (Auto) 0.7 (0.0-7.0) % Baso % (Auto) 0.6 (0.0-3.0) % Neut # (Auto) 6.40 (1.7-7.0) K/uL Lymph # (Auto) 1.50 (0.90-2.90) K/uL [place] # (Auto) 0.40 (0.00-0.90) K/UL Eos # (Auto) 0.06 (0.00-0.50) K/uL Baso # (Auto) 0.05 (0.00-0.30) K/uL Abs Immat Gran (auto) 0.02 (0.00-0.30) K/uL Imm/Tot Granulo (auto) 0.2 % Sodium 134 L (135-149) mmol/L Potassium 4.1 (3.6-5.1) mmol/L Chloride 102 (96-114) mmol/L Carbon Dioxide 24 (20-32) mmol/L Anion Gap 8 (7-15) mEq/L BUN 11 (7-30) mg/dL Creatinine 0.6 (0.5-1.5) mg/dL Estimated Creat Clear 48.00 Estimated GFR 94 ml/min Glucose 180 H (60-115) mg/dL Calcium 8.9 (8.4-10.6) mg/dL Total Bilirubin 0.7 (0.1-1.5) mg/dL AST 28 (12-35) U/L ALT 23 (4-35) U/L Alkaline Phosphatase 105 (40-150) U/L Total Protein 7.0 (6.0-8.3) g/dL Albumin 4.1 (3.3-5.0) g/dL POC Troponin I 0.00 L (0.01-0.04) ng/ml Imaging Data CT scan - head: Attestation: I have reviewed the pertinent imaging results. My impression: I do not note any acute findings Radiologist's impression: CSF spaces: Mild to moderate diffuse cerebral volume loss. No extra-axial fluid collections. Brain parenchyma: The garay-white differentiation is normal. No sign of mass, hemorrhage, or midline shift. Skull base and calvarium: Small bilateral maxillary mucous retention cysts. The paranasal and mastoid sinuses are otherwise clear. The visualized orbits are grossly unremarkable. No skull fractures. IMPRESSION: No acute intracranial abnormality is demonstrated. Mild moderate diffuse cerebral volume loss. CTA: Attestation: I have reviewed the pertinent imaging results. Radiologist's impression: No head or neck stenosis, occlusions, emboli or aneurysms. MRI head: Attestation: I have reviewed the pertinent imaging results. Radiologist's impression: The ventricles and cortical sulci are mildly prominent, compatible with generalized cerebral volume loss. No midline shift or mass effect. No acute intracranial hemorrhage or abnormal extra-axial fluid collection. No evidence of acute/subacute ischemia. Numerous foci of T2/FLAIR hyperintensity are scattered throughout the supratentorial white matter and central oh, typical for chronic microangiopathy. Incidental ossification of the anterior interhemispheric falx. Partially empty sella configuration. Midline structures are otherwise unremarkable. Major ex pected intracranial flow voids are visualized. Normal bone marrow signal. Small maxillary sinus mucous retention cysts/polyps with mild ethmoid air cell mucosal thickening. Trace nonspecific fluid at the left mastoid tip. Bilateral lens implants. Impression: 1. No evidence of acute intracranial abnormality. 2. Mild generalized cerebral volume loss and mild chronic microangiopathy changes. ECG Data Attestation: I personally reviewed and interpreted this ECG as follows: Interpretation: EKG by my read shows sinus bradycardia at a rate of 57. I do not note any acute ST or T-wave changes. QT and KY intervals within normal limits. Discharge Plan Discharge Clinical Impression: Vertigo, Hearing loss Patient Disposition: Home, Self-Care Condition: Improved Additional Instructions: Meclizine is an anti dizzy medication that you may use as needed. I did discuss with our configuration consultant regarding the decreased hearing. He feels that we should start and antiviral medication as well as steroid and have you follow-up with him next week. Please call the clinic at [phone] for an appointment with Dr. Dominguez Return to the emergency room for worsening symptoms. Prescriptions: New meclizine 25 mg tablet 25 mg PO TID PRNQty: 30 1RF valacyclovir [Valtrex] 1 gram tablet 1,000 mg PO TID Qty: 20 0RF prednisone 10 mg tablet 30 mg PO BID 5 Days Qty: 30 0RF No Action multivitamin Tablet 1 tab PO QAM wheat dextrin 3 gram/3.8 gram powder 4 PO DAILY lisinopril 40 mg tablet 40 mg PO DAILY Qty: 90 3RF levothyroxine 75 mcg tablet 75 mcg PO DAILY Qty: 90 3RF atorvastatin 10 mg tablet 10 mg PO QDAY Qty: 90 3RF Follow Up/Referrals: Adele Mishra MD [Primary Care Provider] - Stand Alone Forms: [employer] Info Instructions
--- OUTSIDE RECORDS SUMMARY | 2024-07-22 11:32 | XMS_ITS | Clinical Summary ---
Author Organization [facility] Address [place], [place] [address] Care Team Providers Care Supervisor Display Fabrication Name Role Phone Adele Mishra MD Primary Care Provider [phone] Allergies Active Allergy Reactions Criticality Noted Date Comments Ciprofloxacin Itching 06/03/2016 Doxycycline Other - Describe In Comment Field,*Unknown - Childhood Rxn High 01/06/2017 Had it for an eye infection and after 10 days it irritated her esophagus Metronidazole In Nacl (Iso-Os) Itching 06/03/2016 Medications levothyroxine (SYNTHROID) 75 mcg tabletIndicati ons:hypothyroi dism Take 75 mcg by mouth before breakfast. Indications: hypothyroidism Active atorvastatin (LIPITOR) 10 mg tabletIndicati ons:hyperchole sterolemia Take 10 mg by mouth once daily. Indications: hypercholesterolemia Acti ve guar gum (BENEFIBER) powd Take 1 Tbsp by mouth once daily. MIX IN 4 OZ BEVERAGE/SOFT FOOD. 0 018 Active multivitamin (MVI) tablet Take 1 tablet by mouth once daily. 0 018 Active lisinopriL (PRINIVIL; ZESTRIL) 40 mg tablet Active polyethylene glycol-electro lyte (GOLYTELY) 236-22.74-6.74 -5.86 gram suspensionIndi cations:Encoun ter for screening colonoscopy Drink 3 quarts the day before procedure and 1 quart 6 hours before procedure 4000 mL Active Social History Tobacco Use Types Packs/Day [...] Paying Living Expenses Not on file 07/20/2021 Comments Unknown Sex and Gender Information Value Date Recorded Sex Assigned at Not on file Legal Sex Female 10:31 AM DISCHARGE SPECIALIST Gender Identity Not on file Sexual Orientation Not on file Obstetrics History Last Filed Vital Signs Vital Sign Reading Time Taken Comments Blood Pressure 138/67 04/17/2021 2:08 PM CDT Pulse 64 04/17/2021 2:08 PM CDT Temperature 36.4 C (97.6 F) 06/03/2016 11:08 AM DISCHARGE SPECIALIST Respiratory Rate 16 12/02/2017 12:53 PM CDT [...] age 65+ 2015 Pneumococcal series for age 50+ (1 of 1 - PCV) 2015 BMI (ht and wt on same day) for age 18+ 12/02/2018 12/02/2017 COVID-19 vaccine series (2023- season) 2024 05/06/2022, 05/16/2021, 10/12/2020, Additional history exists Influenza for age 65+ 03/20/2024 RSV vaccine for adults or (1 - 1-dose 75+ series) 2025 Colonoscopy through age 75 06/03/2031 06/03/2021, Procedures Procedure Name Priority Date/Time Associated Diagnosis Comments COLONOSCOPY DIAGNOSTIC Routine 06/03/2021 12:00 AM DISCHARGE SPECIALIST Chronic diarrhea from Last 3 Months or Most Recently Relevant to Health Maintenance Results * COLONOSCOPY DIAGNOSTIC (06/03/2021 12:00 AM DISCHARGE SPECIALIST) Nathan Contreras MD GI PROCEDURE ORD Final Re sult from Last 3 Months or Most Recently Relevant to Health [place] [address] MEDICARE PART B HB ONLY MEDICARE PB ONLY MEDICARE PART A HB ONLY COMMERCIAL Care Teams Supervisor Display Fabrication Relationship Specialty Start Date End Date Adele Mishra MD [address] [place] [id number] PCP - General Internal Medicine 12/01/17
--- OUTSIDE RECORDS SUMMARY | 2024-07-22 11:32 | XMS_ITS | Referral Summary ---
Author Organization [facility] Address [address] [place] [address] Care Team Providers Care Biblical Languages Professor Name Role Phone Patty Dailey Primary Care Provider + [phone] Allergies Active Allergy Reactions Criticality Noted Date Comments Ciprofloxacin PRURITUS 01/22/2015 Doxycycline Other (See Comments) 06/04/2017 Had it for an eye infection and after 10 days it irritated her esophagus Metronidazole PRURITUS Medium 01/22/2015 Medications Medication Sig Dispensed Refills Start Date End Date Status levothyroxine (SYNTHROID, LEVOTHROID) 75 MCG tablet Take 75 mcg by mouth daily. Active [place]-3 Fatty Acids (FISH OIL) 1200 MG capsule [...] Comments Blood Pressure 130/72 09/03/2017 9:38 AM LIEUTENANT FIREFIGHTER Pulse 70 09/03/2017 9:38 AM LIEUTENANT FIREFIGHTER Temperature - - Respiratory Rate - - Oxygen Saturation - - Inhaled Oxygen Concentration - - Weight 86.2 kg (190 lb 1.6 oz) 09/03/2017 9:38 A M LIEUTENANT FIREFIGHTER Height 170.8 cm (5' 7.25) 09/03/2017 9:38 AM CS T Body Mass Index 29.55 09/03/2017 9:38 AM LIEUTENANT FIREFIGHTER Plan of Treatment Not on file Procedures Procedure Name Priority Date/Time Associated Diagnosis Comments COLONOSCOPY DIAGNOSTIC Routine 01/23/2016 from Last 3 Months or Most Recently Relevant to Health Maintenance Results * COLONOSCOPY DIAGNOSTIC (01/23/2016) Outside Provider SURGERY & PROCEDURES from Last 3 Months or Most Recently Relevant to Health Maintenance Care Teams Biblical Languages Professor Relationship Specialty Start Date End Date Patty Dailey APNP [address] [place] [phone] PCP - General Nurse Practitioner - Family 01/22/15
--- OUTSIDE RECORDS SUMMARY | 2024-07-22 11:32 | XMS_ITS | Clinical Summary ---
Author Organization [facility] Address [address] [place] [id number] Care Team Providers Care Foundry Equipment Mechanic Name Role Phone Patty Dailey Primary Care Provider + [phone] Allergies Active Allergy Reactions Criticality Noted Date Comments Ciprofloxacin PRURITUS 01/22/2015 Doxycycline Other (See Comments) 06/04/2017 Had it for an eye infection and after 10 days it irritated her esophagus Metronidazole PRURITUS Medium 01/22/2015 Medications Medication Sig Dispensed Refills Start Date End Date Status levothyroxine (SYNTHROID, LEVOTHROID) 75 MCG tablet Take 75 mcg by mouth daily. Active [place]-3 Fatty Acids (FISH OIL) 1200 MG capsule [...] left colon resection for diverticulitis/Colt Alexandra MD ([facility]) Medical History Medical History Date Comments Essential [...] Comments Blood Pressure 130/72 09/03/2017 9:38 AM GRAPHIC ARTIST Pulse 70 09/03/2017 9:38 AM GRAPHIC ARTIST Temperature - - Respiratory Rate - - Oxygen Saturation - - Inhaled Oxygen Concentration - - Weight 86.2 kg (190 lb 1.6 oz) 09/03/2017 9:38 A M GRAPHIC ARTIST Height 170.8 cm (5' 7.25) 09/03/2017 9:38 AM CS T Body Mass Index 29.55 09/03/2017 9:38 AM GRAPHIC ARTIST Plan of Treatment Health Maintenance Due Date [...] Recently Relevant to Health Maintenance Care Teams Foundry Equipment Mechanic Relationship Specialty Start Date End Date Patty Dailey APNP [address] [place] [place] [phone] PCP - General Nurse Practitioner - Family 01/22/15
--- NOTE | 2024-07-22 11:33 | CRLHL7_ITS ---
For Patients: As a result of the Century Cures Act, medical imaging exams and procedure reports are released immediately into your electronic medical record. You may view this report before your referring provider. If you have questions, please contact your health care provider. Comparison: Same-day neck CTA Impression: No head or neck stenosis, occlusions, emboli or aneurysms. Discussed with Dr. Germain at 12:25 Please note [address] all [address] scans at this facility use dose modulation, iterative reconstruction, and/or weight-based dosing when appropriate to reduce radiation dose to as low as reasonably achievable. Dictated by Ruddy Art MD @ 07/22/2024 12:27:36 PM (Electronically Signed)
--- NOTE | 2024-07-22 11:33 | CRLHL7_ITS ---
For Patients: As a result of the Cures Act, medical imaging exams and procedure reports are released immediately into your electronic medical record. You may view this report before your referring provider. If you have questions, please contact your health care provider. Comparison: None Impression: No head or neck stenosis, occlusions, emboli or aneurysms Findings discussed with Dr. KARY IVAN, at 12:[address] all [address] scans at this facility use dose modulation, iterative reconstruction, and/or weight-based dosing when appropriate to reduce radiation dose to as low as reasonably achievable. Dictated by Ruddy Art MD @ 07/22/2024 12:25:38 PM (Electronically Signed)
--- NOTE | 2024-07-22 11:33 | CRLHL7_ITS ---
For Patients: As a result of the Century Cures Act, medical imaging exams and procedure reports are released immediately into your electronic medical record. You may view this report before your referring provider. If you have questions, please contact your health care provider. INDICATION: Vertigo. Stroke symptoms. TECHNIQUE: CT head without contrast. COMPARISON: None FINDINGS: CSF spaces: Mild to moderate diffuse cerebral volume loss. No extra-axial fluid collections. Brain parenchyma: The garay-white differentiation is normal. No sign of mass, hemorrhage, or midline shift. Skull base and calvarium: Small bilateral maxillary mucous retention cysts. The paranasal and mastoid sinuses are otherwise clear. The visualized orbits are grossly unremarkable. No skull fractures. IMPRESSION: No acute intracranial abnormality is demonstrated. Mild moderate diffuse cerebral volume loss. Findings called to the ER and discussed with Dr Clemente for Dr. Bhavana Hernandez at 12:16 Please note that all CT scans at this facility use dose modulation, iterative reconstruction, and/or weight-based dosing when appropriate to reduce radiation dose to as low as reasonably achievable. Dictated by Ruddy Art MD @ 07/22/2024 12:17:32 PM (Electronically Signed)
[2024-07-22 12:09] LABS: Basophils Absolute Auto 0.05 K/uL (0.00-0.30); Basophils Percent Auto 0.6 % (0.0-3.0); Eosinophils Absolute Auto 0.06 K/uL (0.00-0.50); Eosinophils Percent Auto 0.7 % (0.0-7.0); Hematocrit 41.5 % (33.0-51.0); Hemoglobin* 14.6 gm/dL (12.0-16.0); Immature Granulocytes Abs Auto 0.02 K/uL (0.00-0.30); Immature Granulocytes Pct Auto 0.2 %; Lymphocytes Percent Auto 17.8 % (20-44); Mean Corpuscular HGB Conc 35 gm/dL (32-36); Mean Corpuscular Hemoglobin 32 pg (26-34); Mean Corpuscular Volume 91 fL (80-100); Monocytes Percent Auto 4.7 % (0.0-11.0); Platelet Count* 194 K/uL (140-440); RDW Coefficient of Variation % 12.1 % (11.5-15.5); Red Blood Count 4.58 m/uL (4.00-5.20); White Blood Count* 8.43 K/uL (4.50-11.00)
[2024-07-22 12:17] LABS: Slide Review Reflex No
[2024-07-22 12:23] LABS: Albumin* 4.1 g/dL (3.3-5.0); Chloride* 102 mmol/L (96-114); Potassium* 4.1 mmol/L (3.6-5.1); Sodium* 134 mmol/L (135-149)
[2024-07-22 12:25] LABS: Creatinine* 0.6 mg/dL (0.5-1.5); Estimated Glomerular Filt Rate 94 ml/min
[2024-07-22 12:26] LABS: Alanine Aminotransferase* 23 U/L (4-35); Alkaline Phosphatase* 105 U/L (40-150); Aspartate Amino Transferase* 28 U/L (12-35); Bilirubin Total* 0.7 mg/dL (0.1-1.5); Blood Urea Nitrogen* 11 mg/dL (7-30); Carbon Dioxide* 24 mmol/L (20-32); Glucose* 180 mg/dL (60-115)
[2024-07-22 12:27] LABS: Calcium* 8.9 mg/dL (8.4-10.6)
[2024-07-22 12:29] LABS: Anion Gap 8 mEq/L (7-15)
[2024-07-22] MEDS: LORazepam 2 MG/ML inj 0.5 MG IVP (12:33)
--- OUTSIDE RECORDS SUMMARY | 2024-07-22 12:48 | XMS_ITS | Clinical Summary ---
Author Organization [facility] Address [place], [place] [address] Care Team Providers Care Computer Repair Technician Name Role Phone Adele Mishra MD Primary Care Provider [phone] Allergies Active Allergy Reactions Criticality Noted Date [...] on file Legal Sex Female 10:31 AM PRIVATE INVESTIGATOR Gender Identity Not on file Sexual Orientation Not on file Obstetrics History Last Filed Vital Signs Vital Sign Reading Time Taken Comments Blood Pressure 138/67 04/17/2021 2:08 PM CDT Pulse 64 04/17/2021 2:08 PM CDT Temperature 36.4 C (97.6 F) 06/03/2016 11:08 AM PRIVATE INVESTIGATOR Respiratory Rate 16 12/02/2017 12:53 PM CDT [...] Comments COLONOSCOPY DIAGNOSTIC Routine 06/03/2021 12:00 AM PRIVATE INVESTIGATOR Chronic diarrhea from Last 3 Months or Most Recently Relevant to Health Maintenance Results * COLONOSCOPY DIAGNOSTIC (06/03/2021 12:00 AM PRIVATE INVESTIGATOR) Nathan Contreras MD GI PROCEDURE ORD Final Re sult from Last 3 Months or Most Recently Relevant to Health Maintenance [place] [address] MEDICARE PART B HB ONLY MEDICARE PB ONLY MEDICARE PART A HB ONLY COMMERCIAL Care Teams Computer Repair Technician Relationship Specialty Start Date End Date Adele Mishra MD [address] [place] [id number] PCP - General Internal Medicine 12/01/17
--- OUTSIDE RECORDS SUMMARY | 2024-07-22 12:48 | XMS_ITS | Referral Summary ---
Author Organization [facility] Address [address] [place] [address] Care Team Providers Care Health Service Worker Name Role Phone Patty Dailey Primary Care Provider + [phone] Allergies Active Allergy Reactions Criticality Noted Date Comments Ciprofloxacin PRURITUS 01/22/2015 Doxycycline Other (See Comments) 06/04/2017 Had it for an eye infection and after 10 days it irritated her esophagus Metronidazole PRURITUS Medium 01/22/2015 Medications Medication Sig Dispensed Refills Start Date End Date Status levothyroxine (SYNTHROID, LEVOTHROID) 75 MCG tablet Take 75 mcg by mouth daily. Active [place]-3 Fatty Acids (FISH OIL) 1200 MG capsule [...] Comments Blood Pressure 130/72 09/03/2017 9:38 AM WOOD TECHNOLOGIST Pulse 70 09/03/2017 9:38 AM WOOD TECHNOLOGIST Temperature - - Respiratory Rate - - Oxygen Saturation - - Inhaled Oxygen Concentration - - Weight 86.2 kg (190 lb 1.6 oz) 09/03/2017 9:38 A M WOOD TECHNOLOGIST Height 170.8 cm (5' 7.25) 09/03/2017 9:38 AM CS T Body Mass Index 29.55 09/03/2017 9:38 AM WOOD TECHNOLOGIST Plan of Treatment Not on file Procedures Procedure Name Priority Date/Time Associated Diagnosis Comments COLONOSCOPY DIAGNOSTIC Routine 01/23/2016 from Last 3 Months or Most Recently Relevant to Health Maintenance Results * COLONOSCOPY DIAGNOSTIC (01/23/2016) Outside Provider SURGERY & PROCEDURES from Last 3 Months or Most Recently Relevant to Health Maintenance Care Teams Health Service Worker Relationship Specialty Start Date End Date Patty Dailey APNP [address] [place] [phone] PCP - General Nurse Practitioner - Family 01/22/15
--- OUTSIDE RECORDS SUMMARY | 2024-07-22 12:48 | XMS_ITS | Clinical Summary ---
Author Organization [facility] Address [address] [place] [id number] Care Team Providers Care Special Deputy Sheriff Name Role Phone Patty Dailey Primary Care Provider + [phone] Allergies Active Allergy Reactions Criticality Noted Date Comments Ciprofloxacin PRURITUS 01/22/2015 Doxycycline Other (See Comments) 06/04/2017 Had it for an eye infection and after 10 days it irritated her esophagus Metronidazole PRURITUS Medium 01/22/2015 Medications Medication Sig Dispensed Refills Start Date End Date Status levothyroxine (SYNTHROID, LEVOTHROID) 75 MCG tablet Take 75 mcg by mouth daily. Active [place]-3 Fatty Acids (FISH OIL) 1200 MG capsule [...] left colon resection for diverticulitis/Colt Alexandra MD ([facility]) Medical History Medical History Date Comments Essential [...] Comments Blood Pressure 130/72 09/03/2017 9:38 AM [facility] Pulse 70 09/03/2017 9:38 AM [facility] Temperature - - Respiratory Rate - - Oxygen Saturation - - Inhaled Oxygen Concentration - - Weight 86.2 kg (190 lb 1.6 oz) 09/03/2017 9:38 A M [facility] Height 170.8 cm (5' 7.25) 09/03/2017 9:38 AM CS T Body Mass Index 29.55 09/03/2017 9:38 AM [facility] Plan of Treatment Health Maintenance Due Date [...] Recently Relevant to Health Maintenance Care Teams Special Deputy Sheriff Relationship Specialty Start Date End Date Patty Dailey APNP [address] [place] [phone] PCP - General Nurse Practitioner - Family 01/22/15
--- NOTE | 2024-07-22 12:59 | CRLHL7_ITS ---
For Patients: As a result of the Century Cures Act, medical imaging exams and procedure reports are released immediately into your electronic medical record. You may view this report before your referring provider. If you have questions, please contact your health care provider. Indication: Vertigo Technique: Multiplanar, multisequence MRI of the brain obtained without contrast. Comparison: CT head 07/22/2024 Findings: The ventricles and cortical sulci are mildly prominent, compatible with generalized cerebral volume loss. No midline shift or mass effect. No acute intracranial hemorrhage or abnormal extra-axial fluid collection. No evidence of acute/subacute ischemia. Numerous foci of T2/FLAIR hyperintensity are scattered throughout the supratentorial white matter and central oh, typical for chronic microangiopathy. Incidental ossification of the anterior interhemispheric falx. Partially empty sella configuration. Midline structures are otherwise unremarkable. Major expected intracranial flow voids are visualized. Normal bone marrow signal. Small maxillary sinus mucous retention cysts/polyps with mild ethmoid air cell mucosal thickening. Trace nonspecific fluid at the left mastoid tip. Bilateral lens implants. Impression: 1. No evidence of acute intracranial abnormality. 2. Mild generalized cerebral volume loss and mild chronic microangiopathy changes. Dictated by Omayra Oneill MD @ 07/22/2024 3:33:53 PM (Electronically Signed)
== END 2024-07-22 16:35 | disposition home or self-care (01) ==
PROVIDERS: Emergency Provider Family Medicine; PCP Internal Medicine
DX: R42 Dizziness and giddiness (principal); H91.91 Unspecified hearing loss, right ear
CPT/HCPCS: 36415; 70450; 70496; 70498; 70551; 80053; 84484; 85025; 93005; 96374; 99284; 99285; J2060; Q9967

== ENCOUNTER 2024-09-22 08:13 | Outpatient (CLI) | payer MEDICARE, OTHER, SELFPAY | END 2024-09-22 08:14 | disposition home or self-care (01) | LOC: NFLDREF 08:35 | PROVIDERS: PCP Internal Medicine; Visit Provider Internal Medicine | DX: Z01.818 Encounter for other preprocedural examination (principal) | CPT/HCPCS: 80053 ==

== ENCOUNTER 2024-09-28 10:45 | Day surgery (SDC) | payer MEDICARE, OTHER, SELFPAY ==
[2024-09-28] VITALS (23 sets, daily range): BP systolic 102–193; BP diastolic 51–91; PULSE 45–62; RESP 12–20; TEMP 35.5–36.4; O2SAT 86–99; BMI 31.9
[2024-09-28] MEDS: SODIUM CHLORIDE 0.9 % (FLUSH) 10 ML SYRINGE IVF (11:25)
[2024-09-28] MEDS: LACTATED RINGERS 1000 ML 1,000 ML 100 ML IV (11:30)
[2024-09-28] MEDS: ACETAMINOPHEN 500 MG TABLET 1000 MG PO ×2 (11:30→18:32)
[2024-09-28] MEDS: OXYCODONE (CR) 10 MG TAB.ER.12H PO (11:30)
[2024-09-28] MEDS: MIDAZOLAM HCL 1 MG/ML inj IVP (11:52)
[2024-09-28] MEDS: fentaNYL 100 MCG/2 ML inj IVP (11:52)
--- NOTE | 2024-09-28 11:57 | P.NB_ITS ---
Nerve Block Nerve Block Time Seen by Provider: 11:55 Date Seen: 09/28/24 Type of block requested by surgeon for post-operative analgesia: geniculars Side: right Time out performed: Yes Verification of patient name: Yes Verification of date of : Yes Site marking: site marked Name of person performing procedure: Donald Continuous monitoring Was continuous monitoring of O2 sat, B/P, surveillance monitor, recorded every 15 minutes?: Yes Procedure Checklist: sterile prep, needles and gloves Ultrasound guided. Images saved: Yes Medications given in 5ml increments after negative aspiration: Marcaine %: 0.25 mL: 9 Needle gauge: 25 Patient tolerated procedure well: Yes Block Charges Block Charge (with Pro Fee): Genicular Nerve Block
--- NOTE | 2024-09-28 11:57 | P.NB_ITS ---
Nerve Block Nerve Block Time Seen by Provider: 11:55 Date Seen: 09/28/24 Type of block requested by surgeon for post-operative analgesia: adductor canal Side: right Time out performed: Yes Verification of patient name: Yes Verification of date of : Yes Site marking: site marked Name of person performing procedure: Donald Continuous monitoring Was continuous monitoring of O2 sat, B/P, cardiac exercise physiologist, recorded every 15 minutes?: Yes Procedure Checklist: sterile prep, needles and gloves Ultrasound guided. Images saved: Yes Medications given in 5ml increments after negative aspiration: Marcaine %: 0.25 mL: 15 Needle gauge: 20 Precedex (mcg): 25 Patient tolerated procedure well: Yes Block Charges Block Charge (with Pro Fee): Femoral Nerve Use of Ultrasound Machine for Block: Yes- US Guidance/pain block
--- NOTE | 2024-09-28 11:57 | SUR.PREOP ---
TIME?OUT:?1150 PT/RN/MDA?VERIFICATION?OF?SURGICAL?SITE-RIGHT KNEE,?NERVE BLOCK, PROCEDURE,?AND?CONSENT OBTAINED?PRIOR?TO?INVASIVE?PROCEDURE.
--- NOTE | 2024-09-28 11:58 | P.ANES_ITS ---
Anesthesia Charges Start Date/Time Anesthesia Start Date: 09/28/24 Anesthesia Start Time: 11:59 Stop Date/Time Anesthesia Stop Date: 09/28/24 Anesthesia Stop Time: 14:56 Summary Extremes of Age - Over 70 or under 1: MDA Coding CPT Codes CPT Codes: ANESTH KNEE ARTHROPLASTY - 26404 ([id number]) P2 - PATIENT W/MILD SYST DISEASE, QK - SPECIALTY FOODS COOK 2-4 CNCRNT ANES PROC, QX - DIRECT MAIL MARKETER SVC W/ MD MED DIRECTION Additional Codes: Summary - Extremes of Age - Over 70 or under 1: MDA ([id number])
--- NOTE | 2024-09-28 11:58 | W.ANESCHARGE ---
Anesthesia Charges Start Date/Time Anesthesia Start Date: 09/28/24 Anesthesia Start Time: 11:59 Stop Date/Time Anesthesia Stop Date: 09/28/24 Anesthesia Stop Time: 14:56 Summary Extremes of Age - Over 70 or under 1: MDA Coding CPT Codes CPT Codes: ANESTH KNEE ARTHROPLASTY - 08063 ([id number]) P2 - PATIENT W/MILD SYST DISEASE, QK - POSTDOCTORAL SCHOLAR 2-4 CNCRNT ANES PROC, QX - VETERINARIAN EPIDEMIOLOGIST SVC W/ MD MED DIRECTION Additional Codes: Summary - Extremes of Age - Over 70 or under 1: MDA ([id number])
--- NOTE | 2024-09-28 12:03 | SUR.PREOP ---
Pt states she feels nervous about procedure. Calming aromatherapy patch applied to pts gown in preop area. Questions answered by RN. Support given to pt and her spouse. Pt feeling less anxious after aromatherapy patch and IV sedation before block.
[2024-09-28] MEDS: CEFAZOLIN 2 GM in 0.9 % SODIUM CHLORIDE Mini-bag 100 ML IVPB ×2 (12:12→18:51)
[2024-09-28] MEDS: TRANEXAMIC ACID 100 MG/ML INJ 1000 MG IV (12:16)
--- NOTE | 2024-09-28 12:18 | W.PM.H&PU ---
History & Physical Update History & Physical Update H&P Reviewed and patient assessed: No changes noted
--- NOTE | 2024-09-28 12:20 | CRLHL7_ITS ---
For Patients: As a result of the Cures Act, medical imaging exams and procedure reports are released immediately into your electronic medical record. You may view this report before your referring provider. If you have questions, please contact your health care provider. Indication: post op TKA Technique: Two views of the right knee Comparison: Right knee radiographs on September 06, 2024 Findings/Impression: Postsurgical changes of right total knee arthroplasty and patellar resurfacing without evidence of hardware related complication. Expected postsurgical gas and edema in the operative bed. Dictated by Yung Donovan MD @ 09/28/2024 3:28:27 PM (Electronically Signed)
--- NOTE | 2024-09-28 14:03 | P.ORPRC_ITS ---
Procedure Note Date of procedure: 09/28/24 Procedure: PREOPERATIVE DIAGNOSIS: 1. Right knee osteoarthritis, primary, severe POSTOPERATIVE DIAGNOSIS: 1. Right knee osteoarthritis, primary, severe PROCEDURE: 1. Right total knee arthroplasty - subvastus SURGEON: Dat Retana MD. AEROSPACE PROJECT ENGINEER: Florecita Schmitt PA-C - Of note, a skilled agency sales management assistant was critical for this case to aid in patient positioning, tissue retraction, limb manipulation/positioning, and closure. ANESTHESIA: Spinal anesthetic IMPLANTS: DePuy J&J all cemented TKA - Attune PS femur size 7 Size 5 tibia 5 mm poly spacer 38 mm patella TOURNIQUET: 110 min at 300 torr EBL: 50 ml COMPLICATIONS: None evident INDICATIONS: The patient is a pleasant 74-year-old female who has experienced severe right knee pain and difficulty bearing weight. Workup included x-rays which revealed severe osteoarthrosis in the knee. Given the deformity, the dysfunction, and the pain, as well as the failure of nonoperative management, recommendation was made for surgery. FINDINGS: Significant chondromalacia medially and to a lesser degree patellofemoral and lateral. Degenerative medial meniscus pathology greater than lateral. Extremely large effusion upon entering the joint. DESCRIPTION OF PROCEDURE: Following a thorough discussion of risks, benefits, and alternatives consent was obtained and the right knee was marked. The patient was brought to the operating room and placed supine on the operating table. Induction of anesthesia was undertaken. 2 g IV Ancef and 1 g tranexamic acid was administered within 1 hr of incision preoperatively. Proper time-out was performed identifying proper patient, site, procedure. The operative extremity was prepped and draped in the appropriate sterile fashion using ChloraPrep after the patient was positioned supine with all bony prominences well padded. A longitudinal, anterior, midline skin incision was made starting approximately 3cm proximal to the superior pole of the patella and advanced distal to the tibial tubercle. A subvastus approach was utilized. A medial subperiosteal sleeve was created with knife, arguello elevator and curved osteotome. The retropatellar fatpad was resected and the synovium in the suprapatellar pouch excised to visualize the anterior femoral cortex. Femoral preparation was performed via an intramedullary guide. Step drill allowed access into the femoral canal. The distal cutting guide was placed with 5? of valgus and 11 mm cut on the distal femur. Femur was sized using a posterior referencing guide in 3? of external rotation. This found have a best fit with the sizing noted above. The 4 in 1 cutting block was then placed, and the distal femur shaped accordingly. The box cut was then created and the trial implant inserted to confirm appropriate fit. We turned our attention to the proximal tibia. Extramedullary guide was utilized for cutting with the goal of being 90 degree cut from the mechanical axis of the tibia in the varus/valgus plane utilizing tibial crest as the primary alignment. Initially a 2 mm resection was performed from the medial tibial plateau. An additional 4mm did require resection to achieve appropriate balance. Ultimately, balancing was achieved in both flexion and extension in both varus and valgus. The knee was able to achieve full extension as well comfortably. The patella was initially measured and found have a thickness of 23 mm. It was resected back to approximately 14 mm. It was sized to be a best fit with as noted above. This was drilled, trial placed. All trials were placed and found to have an excellent stability and balance. At this stage, trial implants were removed, the knee was thoroughly irrigated with normal saline, and the cement was mixed. After irrigation, the knee was thoroughly dried, and cement placed, with the real tibial and femoral implants placed along with the patella. Trial poly spacer was placed and confirmed to have excellent range of motion and full extension, and the real poly spacer opened and inserted. All extra cement was removed, and a 3 min Betadine soak performed. Finally, a final irrigation round with normal saline was performed. Closure performed with 0 Vicryl and #0 Stratafix for the quad tendon/retinaculum. 2-0 Vicryl for the subcutaneous and 4-0 Stratafix for subcuticular closure. Dressings were applied and the patient was awoken from anesthesia after the tourniquet deflated and transferred the PACU in stable condition. A skilled agency sales management assistant was critical for this case to aid in patient positioning, tissue retraction, bone exposure, limb manipulation/positioning, patient safety, and closure. PLAN: 1. Weight bear as tolerated operative extremity. 2. 23 hr perioperative antibiotics. 3. Ice. 4. PT/OT consults for ambulation assistance/mobility education. 5. Social work consult for discharge planning. 6. DVT prophylaxis with at SCDs and aspirin twice daily.
--- NOTE | 2024-09-28 15:08 | P.ANES_ITS ---
Anesthesia Charges Start Date/Time Anesthesia Start Date: 09/28/24 Anesthesia Start Time: 11:59 Stop Date/Time Anesthesia Stop Date: 09/28/24 Anesthesia Stop Time: 14:56 Summary Extremes of Age - Over 70 or under 1: STREET LIGHT CLEANER Coding CPT Codes CPT Codes: ANESTH KNEE ARTHROPLASTY - 16683 ([id number]) P2 - PATIENT W/MILD SYST DISEASE, QK - AUTOMOTIVE WELDER 2-4 CNCRNT ANES PROC, QX - STREET LIGHT CLEANER SVC W/ MD MED DIRECTION Additional Codes: Summary - Extremes of Age - Over 70 or under 1: STREET LIGHT CLEANER ([id number])
--- NOTE | 2024-09-28 15:08 | W.ANESCHARGE ---
Anesthesia Charges Start Date/Time Anesthesia Start Date: 09/28/24 Anesthesia Start Time: 11:59 Stop Date/Time Anesthesia Stop Date: 09/28/24 Anesthesia Stop Time: 14:56 Summary Extremes of Age - Over 70 or under 1: FOOD AND NUTRITION SERVICES SUPERVISOR Coding CPT Codes CPT Codes: ANESTH KNEE ARTHROPLASTY - 79036 ([id number]) P2 - PATIENT W/MILD SYST DISEASE, QK - DRYWALL CONTRACTOR 2-4 CNCRNT ANES PROC, QX - FOOD AND NUTRITION SERVICES SUPERVISOR SVC W/ MD MED DIRECTION Additional Codes: Summary - Extremes of Age - Over 70 or under 1: FOOD AND NUTRITION SERVICES SUPERVISOR ([id number])
[2024-09-28] MEDS: HYDROmorphone 0.5 mg/0.5 ml inj IVP ×2 (16:35→18:45)
--- NOTE | 2024-09-28 18:01 | PM.IMCN1 ---
Date of Consult Patient: [facility] Patient Consult date: 09/28/24 Requesting Physician: Orthopedics Primary Care Provider: Adele Mishra MD Consult Narrative Reason for consult: Medical management Narrative: Jessica Dia is a 74 year old female past medical history significant for osteoarthritis, prediabetes, hypothyroidism, irritable bowel syndrome with diarrhea, hyperlipidemia, hypertension, steatosis of liver is POD#0 s/p right total knee arthroplasty, Dr. Retana. There have been no perioperative complications or nursing concerns reported. Estimated total blood loss documented as 50 ml. Noted to be bradycardic however this is chronic when reviewing EMR. Baseline heart rate upper 40s-50s. Updated and reviewed the active medical problems, past medical history, past surgical history, social history, allergies and medications in our electronic EMR. Postoperatively, patient reports pain is appropriately managed. Feeling pretty good. Tolerating orals without nausea vomiting. Appetite has returned. Will work with PT/OT tomorrow. Plans to return home with her spouse. Review of Systems Narrative: REVIEW OF SYSTEMS: Complete review of systems performed and negative unless otherwise stated in HPI or below. PFSH PFSH Medical History Health care directive on file (05/17/21) ?Z78.9 - Other specified health status (ICD-10) Steatosis of liver (2017) ?K76.0 - Fatty (change of) liver, not elsewhere classified (ICD-10) Essential hypertension (2013) ?I10 - Essential (primary) hypertension (ICD-10) Hyperlipidemia (2017) ?E78.5 - Hyperlipidemia, unspecified (ICD-10) Irritable bowel syndrome with diarrhea ?K58.0 - Irritable bowel syndrome with diarrhea (ICD-10) Hypothyroidism (2006) ?E03.9 - Hypothyroidism, unspecified (ICD-10) Pre-diabetes ?R73.03 - Prediabetes (ICD-10) Osteoarthritis of right knee ?M17.11 - Unilateral primary osteoarthritis, right knee (ICD-10) Right shoulder pain ?M25.511 - Pain in right shoulder (ICD-10) Biceps tendinopathy ?M67.929 - Unspecified disorder of synovium and tendon, unspecified upper arm (ICD-10) Pes anserine bursitis ?M70.50 - Other bursitis of knee, unspecified knee (ICD-10) Tendinopathy of rotator cuff ?M67.919 - Unspecified disorder of synovium and tendon, unspecified shoulder (ICD-10) Tear of medial meniscus of right knee ?S83.241A - Other tear of medial meniscus, current injury, right knee, initial encounter (ICD-10) Bone marrow edema ?R93.7 - Abnormal findings on diagnostic imaging of other parts of musculoskeletal system (ICD-10) Osteochondral lesion ?M89.9 - Disorder of bone, unspecified (ICD-10) ?M94.9 - Disorder of cartilage, unspecified (ICD-10) MCL sprain of right knee ?S83.411A - Sprain of medial collateral ligament of right knee, initial encounter (ICD-10) Patellar tendinitis, right knee ?M76.51 - Patellar tendinitis, right knee (ICD-10) Herpes zoster vaccination declined ?Z28.21 - Immunization not carried out because of patient refusal (ICD-10) Tear of lateral meniscus of right knee ?S83.281A - Other tear of lateral meniscus, current injury, right knee, initial encounter (ICD-10) History of esophagitis (11/2016) ?Z87.19 - Personal history of other diseases of the digestive system (ICD-10) Surgical History History of cataract surgery ?Z98.49 - Cataract extraction status, unspecified eye (ICD-10) History of incisional hernia repair (07/01/18) ?Z98.890 - Other specified postprocedural states (ICD-10) ?Z87.19 - Personal history of other diseases of the digestive system (ICD-10) History of tonsillectomy ?Z90.89 - Acquired absence of other organs (ICD-10) History of partial surgical removal of colon (09/17/16) ?Z90.49 - Acquired absence of other specified parts of digestive tract (ICD-10) 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) ?Z90.5 - Acquired absence of kidney (ICD-10) History of cholecystectomy (1996) ?Z90.49 - Acquired absence of other specified parts of digestive tract (ICD-10) History of bunionectomy of left great toe (2006) ?Z98.890 - Other specified postprocedural states (ICD-10) History of benign breast biopsy (2013) ?Z98.890 - Other specified postprocedural states (ICD-10) Social History Narrative: -Zoila What is your current living situation?: I presently have a place to live Problems where you live: no known problems In the past 12 months, utilities in danger of being shut off: no In past 12 months, lack of transportation kept you from medical appts, meetings, work, or getting things needed for daily living: no In the past 12 mos, have been you worried that your food would run out before you had money to buy more?: never true In the past 12 mos, the food you bought just didn't last and you didn't have money to buy more?: never true Highest level of school completed/degree received: high school graduate Smoking Status: Never smoker Do you use any of these nicotine containing products: None How often do you have a drink containing alcohol: monthly or less Alcohol type: wine How many standard drinks containing alcohol do you have on a typical day: 1 or 2 How often do you have six or more drinks on one occasion: Never AUDIT-C Alcohol total score: 1 Non-prescribed substance use: denies use Caffeine: Yes (daily coffee, some coke and tea) How often does anyone, including family, friends and others, physically hurt you: never How often does anyone, including family, friends and others, insult or talk down to you: never How often does anyone, including family, friends and others, threaten you with harm: never How often does anyone, including family, friends and others, scream or curse at you: never Are you using contraception or practicing any form of control: No service: No Meds Home Medications and Allergies Home Medications ?Medication ?Instructions ?Recorded ?Confirmed ?Type multivitamin 1 tab PO QAM 01/21/22 09/28/24 History wheat dextrin 3 gram/3.8 gram oral 1 packet PO DAILY 01/21/22 09/28/24 History powder atorvastatin 10 mg tablet 10 mg PO DAILY 09/28/24 09/28/24 History Allergies Allergy/AdvReac Type Severity Reaction Status Date / Time doxycycline Allergy Intermediate esophagitis Verified 09/28/24 10:54 ciprofloxacin Allergy Unknown Verified 09/28/24 10:54 metronidazole Allergy Unknown Verified 09/28/24 10:54 Exam Narrative: Exam Narrative: PHYSICAL EXAM General: Pleasant, conversant, NAD HEENT: Normocephalic, atraumatic, sclera white, EOMI, oral mucosa moist Cardiovascular: RRR, S1S2. No pitting edema Pulmonary: CTA bilaterally without rhonchi, rales, expiratory wheezes. No dyspnea Neurological: Alert, answering questions appropriately, cranial nerves intact, no focal findings Extremities: No gross joint deformity or swelling. Postoperative dressing in place, dry. Neurovascularly intact Skin: Warm, dry. Const: Vital Signs, click to edit/add: Vital Signs - 24 hr 09/28/24 11:41 09/28/24 11:51 09/28/24 11:52 Temperature 97.5 F L Pulse Rate 56 L 62 61 Respiratory Rate 16 16 16 Blood Pressure 189/91 H 193/85 H 183/79 H Pulse Oximetry 96 99 99 Oxygen Delivery Me thod Room Air Room Air Nasal Cannula Oxygen Flow Rate 2 09/28/24 11:57 09/28/24 14:52 09/28/24 15:00 Temperature 97.6 F Pulse Rate 58 L 50 L 48 L Respiratory Rate 16 14 12 Blood Pressure 175/86 H 110/56 L 102/51 L Pulse Oximetry 96 86 L 92 Oxygen Delivery Me thod Nasal Cannula Room Air Nasal Cannula Oxygen Flow Rate 2 4 09/28/24 15:05 09/28/24 15:10 09/28/24 15:15 Temperature Pulse Rate 50 L 46 L 49 L Respiratory Rate 12 12 14 Blood Pressure 110/83 108/59 L 112/60 Pulse Oximetry 92 92 94 Oxygen Delivery Me thod Nasal Cannula Nasal Cannula Nasal Cannula Oxygen Flow Rate 4 2 2 09/28/24 15:20 09/28/24 15:25 Temperature Pulse Rate 46 L 48 L Respiratory Rate 12 14 Blood Pressure 108/58 L 114/64 Pulse Oximetry 93 90 Oxygen Delivery Me thod Room Air Room Air Oxygen Flow Rate 0 Assessment and Plan Assessment and plan (1) Osteoarthritis of right knee: Problem comment: -POD#0 s/p R TKA, Dr. Retana -perioperative management including pain management and anticoagulation per Orthopedic surgery -encourage postoperative pulmonary hygiene -PT OT consults -plan to discharge home with spouse tomorrow Status: Acute (2) Hypothyroidism: Problem comment: Dxed 2005. Continue levothyroxine Status: Chronic (3) Hyperlipidemia: Problem comment: Dxed 2016. Continue statin Status: Chronic (4) Essential hypertension: Problem comment: On treatment since around 2013, continue lisinopril Status: Chronic Total Time Spent Total Time Spent: Today I spent 60 minutes seeing the patient, discussing the patient with ER staff, reviewing Expanse and Epic notes/diagnostics, discussing the care plan with our team that includes social work, PT/OT, pharmacy, RT, senior living and documenting my impressions and plan in the medical record.
[2024-09-28] MEDS: OXYCODONE 5 MG TABLET PO ×2 (18:32→21:09)
--- NOTE | 2024-09-28 20:28 | PC.NURSE ---
End of shift [id number] - Pt arrived from PACU at approximately 1530. Alert, oriented, cooperative. Reported no pain on arrival, ice packs in place, dressing CDI. Pt reporting increasing pain in surgical leg rated from 5-9/10. Given medication per MAR with pt reporting improvement. Up with standby assistance and walker/gait belt and able to transfer from bed to chair during shift. Tolerating O2 via nasal cannula at 2L on arrival from PACU, able to wean down to RA and maintain saturation above 90% per MD order during shift. Pt noted to have episode of bladder incontinence post surgery. Pt appears to be resting comfortably in chair with call light within reach at end of shift with family present.
[2024-09-28] MEDS: ATORVASTATIN CALCIUM 10 MG TABLET PO (21:09)
[2024-09-28] MEDS: SENNOSIDES 1 TAB TABLET 2 TAB PO (21:10)
[2024-09-28] MEDS: ASPIRIN 81 MG TABLET EC PO (21:10)
[2024-09-29] MEDS: OXYCODONE 5 MG TABLET PO ×3 (00:44→11:01)
[2024-09-29] MEDS: ACETAMINOPHEN 500 MG TABLET 1000 MG PO ×2 (00:44→06:56)
[2024-09-29] MEDS: CEFAZOLIN 2 GM in 0.9 % SODIUM CHLORIDE Mini-bag 100 ML IVPB ×2 (02:30→09:55)
[2024-09-29 03:00] VITALS: BP 138/67; PULSE 60; RESP 17; TEMP 36.6; O2SAT 91
[2024-09-29 06:32] LABS: Basophils Percent Auto 0.1 % (0.0-3.0); Hematocrit 41.7 % (33.0-51.0); Hemoglobin* 14.5 gm/dL (12.0-16.0); Immature Granulocytes Pct Auto 0.3 %; Lymphocytes Percent Auto 7.2 % (20-44); Mean Corpuscular HGB Conc 35 gm/dL (32-36); Mean Corpuscular Hemoglobin 32 pg (26-34); Mean Corpuscular Volume 92 fL (80-100); Monocytes Percent Auto 7.7 % (0.0-11.0); Neutrophils Percent Auto 84.7 % (42.0-72.0); Platelet Count* 246 K/uL (140-440); RDW Coefficient of Variation % 12.7 % (11.5-15.5); Red Blood Count 4.53 m/uL (4.00-5.20)
[2024-09-29 06:39] LABS: Slide Review Reflex No
[2024-09-29 06:47] LABS: Potassium* 4.3 mmol/L (3.6-5.1); Sodium* 136 mmol/L (135-149)
[2024-09-29 06:50] LABS: Blood Urea Nitrogen* 16 mg/dL (7-30); Creatinine* 0.7 mg/dL (0.5-1.5); Estimated Glomerular Filt Rate 91 ml/min
[2024-09-29] MEDS: LEVOTHYROXINE 75 MCG TABLET PO (06:57)
[2024-09-29 07:46] VITALS: O2SAT 90
[2024-09-29 07:49] VITALS: BP 143/70; PULSE 59; RESP 14; TEMP 36.6; O2SAT 90; O2SAT 95
--- NOTE | 2024-09-29 07:49 | PC.NURSE ---
Patient pleasant, alert and oriented. Walked to bathroom with walker, gait belt and assist of one. Active ice applied. Given PRN oxycodone and scheduled Tylenol for pain in right leg rated 4-6/10. Also loosened Pasquale wrap on upper right leg as pt was reporting discomfort. Per pt was effective.
[2024-09-29] MEDS: lisinopriL 20 MG TABLET 40 MG PO (09:54)
[2024-09-29] MEDS: SENNOSIDES 1 TAB TABLET 2 TAB PO (09:54)
[2024-09-29] MEDS: ASPIRIN 81 MG TABLET EC PO (09:55)
[2024-09-29 10:44] VITALS: BP 148/66; PULSE 94; RESP 16; TEMP 37.1; O2SAT 94
--- NOTE | 2024-09-29 11:19 | PM.ORPN ---
Subjective Subjective Date Seen: 09/29/24 Principal diagnosis: Status postop day 1 right total knee arthroplasty Interval history: Patient reports doing okay. No acute events over night. Pain managed with scheduled and PRN medications, ice. Reports the pain could be better. DVT prophylaxis: 81 mg aspirin by mouth twice daily, SCDs, walking. Denies fevers, chills, aches, N/V, CP, SOB/MÁRQUEZ, or lightheadedness. Passing flatus. Ortho Exam Narrative Exam Narrative: -Patient appears comfortable; no apparent acute distress -Alert and oriented times 3 -Operative knee moderately swollen; soft tissues supple; no ecchymosis; no erythematous streaking Warmth appropriate -Surgical dressing clean, dry, intact; no drainage. Pasquale bandage covers the right lower extremity. -Moderately sore through the proximal anterior quad; no fluctuance or induration. -Bilateral calfs soft; no significant swelling, edema, tenderness, erythema, discoloration, warmth, or palpable cords -2+ DP/PT pulses, intact dermatomes and myotomes distally (5/5 strength) Const Vital Signs, click to edit/add: Vital Signs - 24 hr 09/28/24 11:41 09/28/24 11:51 09/28/24 11:52 Temperature 97.5 F L Pulse Rate 56 L 62 61 Pulse Rate [Pulse Oximeter] Respiratory Rate 16 16 16 Blood Pressure 189/91 H 193/85 H 183/79 H Blood Pressure [Left Arm] Pulse Oximetry 96 99 99 Oxygen Delivery Method Room Air Room Air Nasal Cannula Oxygen Flow Rate 2 09/28/24 11:57 09/28/24 14:52 09/28/24 15:00 Temperature 97.6 F Pulse Rate 58 L 50 L 48 L Pulse Rate [Pulse Oximeter] Respiratory Rate 16 14 12 Blood Pressure 175/86 H 110/56 L 102/51 L Blood Pressure [Left Arm] Pulse Oximetry 96 86 L 92 Oxygen Delivery Method Nasal Cannula Room Air Nasal Cannula Oxygen Flow Rate 2 4 09/28/24 15:05 09/28/24 15:10 09/28/24 15:15 Temperature Pulse Rate 50 L 46 L 49 L Pulse Rate [Pulse Oximeter] Respiratory Rate 12 12 14 Blood Pressure 110/83 108/59 L 112/60 Blood Pressure [Left Arm] Pulse Oximetry 92 92 94 Oxygen Delivery Method Nasal Cannula Nasal Cannula Nasal Cannula Oxygen Flow Rate 4 2 2 09/28/24 15:20 09/28/24 15:25 09/28/24 15:30 Temperature 96.2 F L Pulse Rate 46 L 48 L 45 L Pulse Rate [Pulse Oximeter] Respiratory Rate 12 14 18 Blood Pressure 108/58 L 114/64 113/68 Blood Pressure [Left Arm] Pulse Oximetry 93 90 93 Oxygen Delivery Method Room Air Room Air Nasal Cannula Oxygen Flow Rate 0 2 09/28/24 15:45 09/28/24 16:00 09/28/24 16:15 Temperature 96.2 F L 95.9 F L 95.9 F L Pulse Rate 50 L 45 L 49 L Pulse Rate [Pulse Oximeter] Respiratory Rate 18 18 18 Blood Pressure 112/64 115/69 134/71 Blood Pressure [Left Arm] Pulse Oximetry 96 94 97 Oxygen Delivery Method Nasal Cannula Oxygen Flow Rate 1 09/28/24 16:30 09/28/24 17:00 09/28/24 17:30 Temperature Pulse Rate Pulse Rate [Pulse Oximeter] Respiratory Rate Blood Pressure 150/70 H 145/76 H 126/71 Blood Pressure [Left Arm] Pulse Oximetry Oxygen Delivery Method Nasal Cannula Oxygen Flow Rate 0.5 09/28/24 18:30 09/28/24 19:45 09/28/24 20:45 Temperature 97.4 F L 97.2 F L 97.4 F L Pulse Rate 60 60 60 Pulse Rate [Pulse Oximeter] Respiratory Rate 20 19 18 Blood Pressure 154/74 H 133/70 141/74 H Blood Pressure [Left Arm] Pulse Oximetry 94 91 90 Oxygen Delivery Method Room Air Room Air Room Air Oxygen Flow Rate 09/28/24 21:45 09/28/24 23:00 09/28/24 23:00 Temperature 97.2 F L 97.6 F Pulse Rate 56 L Pulse Rate [Pulse Oximeter] 56 L Respiratory Rate 18 18 18 Blood Pressure 137/69 Blood Pressure [Left Arm] 128/63 Pulse Oximetry 94 92 92 Oxygen Delivery Method Nasal Cannula Nasal Cannula Nasal Cannula Oxygen Flow Rate 1 1 1 09/28/24 23:00 09/29/24 03:00 09/29/24 07:46 Temperature 97.9 F Pulse Rate Pulse Rate [Pulse Oximeter] 60 Respiratory Rate 17 Blood Pressure Blood Pressure [Left Arm] 138/67 Pulse Oximetry 92 91 90 Oxygen Delivery Method Nasal Cannula Oxygen Flow Rate 1.5 09/29/24 07:49 09/29/24 07:49 09/29/24 10:44 Temperature 98 F 98.8 F Pulse Rate Pulse Rate [Pulse Oximeter] 59 L 94 Respiratory Rate 14 14 16 Blood Pressure Blood Pressure [Left Arm] 143/70 H 148/66 H Pulse Oximetry 90 95 94 Oxygen Delivery Method Room Air Room Air Room Air Oxygen Flow Rate Assessment and Plan Assessment and plan (1) Osteoarthritis of right knee: Problem details: -POD#1 s/p R TKA, Dr. Retana -perioperative management including pain management and anticoagulation per Orthopedic surgery -encourage postoperative pulmonary hygiene -PT OT consults -plan to discharge home with spouse tomorrow Status: Acute (2) Hypothyroidism: Problem details: Dxed 2005. Continue levothyroxine Status: Chronic (3) Hyperlipidemia: Problem details: Dxed 2016. Continue statin Status: Chronic (4) Essential hypertension: Problem details: On treatment since around 2013, continue lisinopril Status: Chronic Plan - Complete 23 hour perioperative antibiotics. - PT/OT consult for education and assistance. - Social work consult for discharge planning - Prescribed analgesics as needed - DVT prophylaxis: 81 mg aspirin by mouth twice daily, walking, and SCDs - She will go home with tubigrips to help with swelling. Pasquale bandage is causing some pain into the proximal thigh and groin. - Recommend quad massage. Her quad was found to be very tight intraoperatively, which is likely the cause of her pain at this time. - Anticipation is for discharge to home with and daughter 09/29/2024 if the patient remains medically stable, pain is controlled, and they are safe with mobilization.
--- NOTE | 2024-09-29 12:30 | PC.NURSE ---
Shift Summary: Patient pleasant and cooperative. Up with SBA, walker and gait belt. Pain managed with Medication and ice. Vitals stable and WNL. Patient given tubigrip prior to discharge with instructions on care, new tubigrip applied. Dressing over site C/D/I. Discharge instructions given to patient/family, discussed new medications and follow up. IV removed with catheter intact. Discharged @ 1219.
== END 2024-09-29 12:19 | disposition home or self-care (01) ==
LOC: OR 10:46 → MEDSURG 10:47
PROVIDERS: PCP Internal Medicine; Visit Provider Orthopaedic Surgery Sports Medicine
PROC: (CPT 27447; principal; 2024-09-28 12:30)
DX: M17.11 Unilateral primary osteoarthritis, right knee (principal); G89.18 Other acute postprocedural pain; R00.1 Bradycardia, unspecified; Z79.82 Long term (current) use of aspirin; R73.03 Prediabetes; I10 Essential (primary) hypertension; E03.9 Hypothyroidism, unspecified; E78.5 Hyperlipidemia, unspecified; K58.0 Irritable bowel syndrome with diarrhea
CPT/HCPCS: 27447; 01402; 36415; 64447; 64454; 73560; 76942; 82565; 84132; 84295; 84520; 85025; 94761; 97110; 97116; 97161; 97165; 97530; 97535; 99100; A9270; C1776; J0665; J0690; J1171; J2250; J2371; J2405; J2704; J3010; J7120

== ENCOUNTER 2024-12-26 10:22 | Day surgery (SDC) | payer MEDICARE, OTHER, SELFPAY ==
[2024-12-26] VITALS (12 sets, daily range): BP systolic 112–183; BP diastolic 50–83; PULSE 50–61; RESP 14–16; TEMP 36.4–36.6; O2SAT 91–99; BMI 31.0
[2024-12-26] MEDS: LACTATED RINGERS 1000 ML 1,000 ML 100 ML IV (11:18)
[2024-12-26] MEDS: SODIUM CHLORIDE 0.9 % (FLUSH) 10 ML SYRINGE IVF (11:18)
--- NOTE | 2024-12-26 12:24 | P.ANES_ITS ---
Anesthesia Charges Start Date/Time Anesthesia Start Date: 12/26/24 Anesthesia Start Time: 12:05 Stop Date/Time Anesthesia Stop Date: 12/26/24 Anesthesia Stop Time: 12:37 Summary Extremes of Age - Over 70 or under 1: MDA Coding CPT Codes CPT Codes: ANESTH KNEE JOINT PROCEDURE - 40704 ([id number]) P2 - PATIENT W/MILD SYST DISEASE, QK - SCALE AND SKIP CAR OPERATOR 2-4 CNCRNT ANES PROC, QX - LINUX [employer] ADMINISTRATOR SVC W/ MD MED DIRECTION Additional Codes: Summary - Extremes of Age - Over 70 or under 1: MDA ([id number])
--- NOTE | 2024-12-26 12:24 | W.ANESCHARGE ---
Anesthesia Charges Start Date/Time Anesthesia Start Date: 12/26/24 Anesthesia Start Time: 12:05 Stop Date/Time Anesthesia Stop Date: 12/26/24 Anesthesia Stop Time: 12:37 Summary Extremes of Age - Over 70 or under 1: MDA Coding CPT Codes CPT Codes: ANESTH KNEE JOINT PROCEDURE - 78342 ([id number]) P2 - PATIENT W/MILD SYST DISEASE, QK - CERTIFIED RESPIRATORY THERAPIST 2-4 CNCRNT ANES PROC, QX - BRAKE OPERATOR HEAVY DUTY SVC W/ MD MED DIRECTION Additional Codes: Summary - Extremes of Age - Over 70 or under 1: MDA ([id number])
--- NOTE | 2024-12-26 12:40 | P.ANES_ITS ---
Anesthesia Charges Start Date/Time Anesthesia Start Date: 12/26/24 Anesthesia Start Time: 12:05 Stop Date/Time Anesthesia Stop Date: 12/26/24 Anesthesia Stop Time: 12:37 Coding CPT Codes CPT Codes: ANESTH KNEE JOINT PROCEDURE - 71184 ([id number]) P2 - PATIENT W/MILD SYST DISEASE, QK - COUNTER POCKET SEWER 2-4 CNCRNT ANES PROC, QX - DATA SECURITY COORDINATOR SVC W/ MD MED DIRECTION
--- NOTE | 2024-12-26 12:40 | W.ANESCHARGE ---
Anesthesia Charges Start Date/Time Anesthesia Start Date: 12/26/24 Anesthesia Start Time: 12:05 Stop Date/Time Anesthesia Stop Date: 12/26/24 Anesthesia Stop Time: 12:37 Coding CPT Codes CPT Codes: ANESTH KNEE JOINT PROCEDURE - 75397 ([id number]) P2 - PATIENT W/MILD SYST DISEASE, QK - HEALTH CARE LEGAL ASSISTANT 2-4 CNCRNT ANES PROC, QX - ELECTRIC BATH ATTENDANT SVC W/ MD MED DIRECTION
--- NOTE | 2024-12-26 12:55 | PM.ORPRC ---
Procedure Note Date of procedure: 12/26/24 Procedure: PREOPERATIVE DIAGNOSIS: 1. 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 Right knee manipulation under anesthesia SURGEON: Dat Retana M.D. TRANSMISSION SUPERVISOR: Connie ANESTHESIA: Spinal EBL: None TOURNIQUET: None COMPLICATIONS: None evident INDICATIONS: The patient is a pleasant 74-year-old female who underwent a right TKA approximately 2.5 months ago. In the postoperative time, she has struggled to restore her range of motion. She is stuck in both flexion and extension. Preoperative ROM prior to manipulation but after anesthesia measured 15-95 degrees. Given her failure to progress with nonoperative management for her knee range of motion in in an effort to improve her motion and therefore function, manipulation under anesthesia was indicated. FINDINGS: Preoperative ROM prior to manipulation but after anesthesia measured 15-95 degrees. Post manipulation ROM measured 0-105 with gravity and 0-125 with pressure. DESCRIPTION OF PROCEDURE: After a thorough discussion of risks, benefits, and alternatives, the patient was brought to the operating room and placed upon the operating table. Induction of anesthesia was undertaken as previously noted. No antibiotics were administered as this procedure was plan to be closed. Appropriate time-out was performed identifying proper patient, site, and procedure. Once anesthesia was completed, manipulation under anesthesia was performed. We began by manipulating the patella both the medial and lateral directions primarily but also proximal and distal. This improved the patellar mobility. We then assessed the knee flexion in obtain the preoperative and post manipulation metrics noted above. There was some breaking of scar tissue that could both be palpated and audibly heard in a controlled manner. Regarding full extension, the patient was easily able to achieve full extension at this point. Belly bone test showed that she had no inclination to flex her knee. Instead, the knee remained fully extended. At this stage, the patient was woken from anesthesia. Transferred to recovery room stable condition. PLAN: 1. Weightbear as tolerated operative extremity. Crutch / walker ambulation assistance PRN. 2. Ice, acetominophen and/or ibuprofen, and Oxycodone for pain as needed. 3. Knee range of motion and quad sets/straight leg raise regularly 4. Follow up with PA visit in 1-2 weeks for a ROM check. 5. Continue CPM 4+ hrs per day x 1 month
--- NOTE | 2024-12-26 14:48 | SUR.PHASEII ---
Pt doing well. Tolerated crackers and juice. Denies pain in right knee. Wheelchair out to car with RN and .
== END 2024-12-26 14:42 | disposition home or self-care (01) ==
LOC: OR 10:23
PROVIDERS: PCP Internal Medicine; Visit Provider Orthopaedic Surgery Sports Medicine
PROC: (CPT 27570; principal; 2024-12-26 11:45)
DX: M24.661 Ankylosis, right knee (principal); Z96.651 Presence of right artificial knee joint
CPT/HCPCS: 27570; 01380; 99100; J2250; J2704; J3010; J7120

== ENCOUNTER 2025-02-14 10:00 | Outpatient (RCR) | payer MEDICARE, OTHER, SELFPAY ==
--- NOTE | 2024-09-30 12:18 | PT.OPE ---
PT [place] [facility] PT [facility] Out[facility] Eval Start: 09/30/24 11:03 Freq: Status: Active Protocol: Document 09/30/24 12:18 CJT (Rec: 09/30/24 12:18 CJT [id number]) E-signed By Ivan Parnell PT Physical Therapy Outpatient Evaluation Insurance Information Recert Due Date 12/29/24 Insurance Name Medicare B Medical Diagnosis Z96.651 - S/P R TKA Treating Diagnosis Z96.651 - S/P R TKA Referring Dat Thomas MD Subjective Preferred Name Zack Subjective Pt presents 2 days post-op R TKA (Dr. Retana). Pt presents with her Zoila. Pt reports increased pain about R knee. She did take one oxy this AM at 9, tylenol at 10:00am. Pt reports sleeping in chair with knee straight. She is using the [employer] machine. Did her exercises yesterday while at the hospital otherwise hasn't tried them at home besides doing the ankle pumps. She has been trying to get up and walking throughout the day hourly. Pain Comments High pain level Location: anterior thigh and anterior knee Date of Surgery (If applicable) 09/28/24 Current Work Status Retired Precautions Weight Bearing Status Weight Bear as Tolerated Therapy Limitations/Systems Review Not Limited Objective Other/Pertinent Objective Quad set: fair R Knee AROM: 0-14-54 Skin Inspection: Ecchymosis is present. Mild to moderate edema. No drainage. NO signs of infection although dressing covers surgical incision. Gait: Pt ambulates with FWW. Step-to progressed to step- through gait with reduced stride length on surgical LE. Assessment Assessment/Impression Pt is a very pleasant 74 year old female who presents 2 days post-op R TKA (Dr. Retana). She is doing fair this AM. Ambulating with FWW with step- to gait. She was able to progress to step-through gait today and noted less pain with this. Pts quad set was fair this AM, this improved with repeated repetitions. I was very clear with Zack that she must keep her knee straight as often as she can and avoid placing any pillows strictly behind her knee as this can cause longstanding tightness behind her knee. She gives verbal understanding. All questions were answered to the patient's satisfaction. Skilled PT services are medically necessary to address deficits and return patient to highest level of function. Recommend physical therapy sessions 2 reducing to 1/week for 6-10 weeks. Pt agrees with this plan. Printout of HEP was given for I completion and pt gives verbal understanding of each exercise. Primary Functional Limitations Walking, transfers Plan of Care Rehabilitation Potential Excellent Physical Therapy Goals STG - To be completed in 2-3 weeks: 1. Pt will report consistent use of ice as well as elevation of surgical limb while resting to reduce inflammation and swelling. 2. Pt will demonstrate 90 degrees of knee flexion on surgical limb to reduce risk of contracture development and progress through rehabilitation as expected. 3. Pt to show appropriate use of all AD's with minimal gait deviations and no LOB with all ambulation to reduce risk of falls and restore normal gait mechanics. 4. Pt will demo full knee extension to reduce risk of contracture in posterior knee and allow for ease of ambulation. LTG - To be completed in 6-10 weeks: 1. Pt to be I with HEP so that they may I manage progression of symptoms. 2. Pt will demonstrate 120 degrees knee flexion on surgical limb so that they may descend steps without restrictions in ROM. 3. Pt will perform 10+ squats of full depth with good control over medial/lateral deviation of knees to show improved functional strength to assist with transfers. 4. Pt will demonstrate 5/5 MMT knee flexion/extension of surgical limb to provide greater support to knee joint and allow for ease of ambulation. 5. Pt will ambulate with no AD and minimal gait deviations so that they may return to walking safely and comfortably for exercise and pleasure. Treatment Plan/Direct Interventions Electrical Stimulation,Gait Training,Ice/Cold/ Vasopneumatic,Joint Mobilization,Manual Therapy, Neuromuscular Re-ed,Self-Care/ Home Management,Therapeutic Activities,Therapeutic Exercises Frequency/Duration 2 reducing to 1/week for 6-10 weeks Patient Will Be Discharged From Therapy Completion of LTG(s),Skills Plateau,Independent w/HEP, Independently Progressing Evaluation Billing Untimed Code Treatment Minutes 35 PT Eval No Charge No Complexity Low Certification Information Initial Certification Date 09/30/24 Ending Certification Date 12/29/24 Provider Signature Required Yes Provider Signature Shows Agreement With POC & Medical Necessity Physician NPI Number Write NPI# Here Physician Comment/Change : Physician Signature & Date Requested Please Sign/Date Here
--- NOTE | 2024-11-01 14:15 | PT.OPDN ---
PT [facility] [facility] Daily Note PT [facility] Outpatient Daily Note Start: 09/30/24 11:03 Freq: Status: Active Protocol: Document 11/01/24 12:51 CJT (Rec: 11/01/24 14:15 CJT [email or web address]) E-signed By Ivan Parnell, PT PT OP Daily Progress Note Visit Information Note Type Recert/Progress Note Visit Number 10 Physician Authorized Visits E&T Insurance Information Recert Due Date 12/29/24 Insurance Name Medicare B Medical Diagnosis Z96.651 - S/P R TKA Treating Diagnosis Z96.651 - S/P R TKA Referring Dat Thomas MD Subjective Preferred Name Zack Subjective Pt doing fair. Was quite sore after last session for about 12 hours or so but felt great the next day. Her Zoila has been helping with the arm bar stretch at home. Pt also went up/down several flights of stairs with step-to pattern without issue. Date of Surgery (If applicable) 09/28/24 Precautions Weight Bearing Status Weight Bear as Tolerated Home Exercise Home Exercise Comments Access Code: [email or web address] URL: [email or web address]/ Date: 09/30/2024 Prepared by: Ivan Parnell Program Notes These exercises are designed to bend and straighten your knee as well as restore firing of your quadriceps. You will likely have some pain with these exercises and that is okay. Keeping your knee moving and firing your quad will help to alleviate pain and restore function of your knee more quickly.? Exercises - Supine Ankle Pumps - 3 x daily - 7 x weekly - 1 sets - 10 reps - Supine Quad Set - 3 x daily - 7 x weekly - 1 sets - 10 reps - 5 seconds hold - Supine Isometric Hamstring Set - 3 x daily - 7 x weekly - 1 sets - 10 reps - 5 seconds hold - Supine Heel Slide - 3 x daily - 7 x weekly - 1 sets - 10 reps - Supine Heel Slide with Strap - 3 x daily - 7 x weekly - 1 sets - 10 reps - Supine Knee Extension Strengthening - 3 x daily - 7 x weekly - 1 sets - 10 reps - Active Straight Leg Raise with Quad Set - 3 x daily - 7 x weekly - 1 sets - 10 reps - Seated Long Arc Quad - 3 x daily - 7 x weekly - 1 sets - 10 reps - Supine Knee Extension Stretch on Towel Roll - 3 x daily - 7 x weekly - 1 sets - 1-5 minutes hold - Seated Passive Knee Extension - 3 x daily - 7 x weekly - 1 sets - 1-5 minutes hold Objective Other/Pertinent Objective R Knee PROM: 0-0-101 Patient Instructed in Risks/Benefits Yes Therapeutic Exercise Therapeutic Exercise Minutes (minutes) 40 Therapeutic Exercise: To Restore Bike - seat 12->7, 12 minutes Functional Status Supine knee flexion stretch with table elevated 2 x 2 minutes Leg Press - 10 lbs, seat 12 x 10, seat 10 x 10, seat 8 x 10 Hamstring curl machine, 20# 2 x 10 Arm bar stretch x 2 minutes Supine knee extension stretch with OP x 60 Manual Therapy Techniques Manual Therapy Minutes (minutes) 16 Manual Therapy Techniques Gentle STM/MFR to R rectus femoris, anterior structures of knee, CMF to scar tissue to reduce tissue tension and improve extensibility. Grade I mobilizations to R knee to reduce pain Grade II-III patellar mobilizations to facilitate motion and improve mobility Other Interventions Provided Other Interventions Provided Estim - anteromedial border of R knee, intensity set to pt preference. 10 minutes. Other Interventions Untimed Minutes 10 Treatment Minutes Untimed Code Treatment Minutes 10 Timed Code Treatment Minutes 56 Total Treatment Time 66 Billing Units Manual Therapy Units 1 Therapeutic Exercise Units 3 Assessment/Impression Assessment/Impression Jessica has made fair progress during her time in PT thus far . Her ROM has been my biggest concern for her up to this point. While her extension ROM has consistently been measured as full, her flexion plateaued at 90-95 degrees for approx 2 weeks. I did express my concerns for this with Jessica and her last week and they worked hard on stretching over the weekend. I measured her flexion ROM as 101 degrees this date. We will continue to strengthen as able with emphasis on restoring full ROM to pts R knee. Recommend continued PT services to address deficits and return pt to highest level of function. Primary Functional Limitations Walking, transfers Plan of Care Physical Therapy Goals STG - To be completed in 2-3 weeks: 1. Pt will report consistent use of ice as well as elevation of surgical limb while resting to reduce inflammation and swelling. MET 2. Pt will demonstrate 90 degrees of knee flexion on surgical limb to reduce risk of contracture development and progress through rehabilitation as expected. MET 3. Pt to show appropriate use of all AD's with minimal gait deviations and no LOB with all ambulation to reduce risk of falls and restore normal gait mechanics. MET 4. Pt will demo full knee extension to reduce risk of contracture in posterior knee and allow for ease of ambulation. MET LTG - To be completed in 6-10 weeks: 1. Pt to be I with HEP so that they may I manage progression of symptoms. 2. Pt will demonstrate 120 degrees knee flexion on surgical limb so that they may descend steps without restrictions in ROM. 3. Pt will perform 10+ squats of full depth with good control over medial/lateral deviation of knees to show improved functional strength to assist with transfers. 4. Pt will demonstrate 5/5 MMT knee flexion/extension of surgical limb to provide greater support to knee joint and allow for ease of ambulation. 5. Pt will ambulate with no AD and minimal gait deviations so that they may return to walking safely and comfortably for exercise and pleasure. Daily Plan of Care Continue per POC Daily Plan of Care Comments Progress note next session. try starting out with estim Student Supervision Licensed PT Directed/Approved Treatment, Reviewed POC with Patient,Made Contact with Patient, Participated in Treatment Documentation Reviewed By Grade And Center Marker Yes
--- NOTE | 2024-12-02 14:11 | PT.OPDN ---
PT [facility] Out[facility] Daily Note PT [facility] Outpatient Daily Note Start: 09/30/24 11:03 Freq: Status: Active Protocol: Document 12/02/24 12:55 CJT (Rec: 12/02/24 14:11 CJT [email or web address]) E-signed By Ivan Parnell, PT PT OP Daily Progress Note Visit Information Note Type Recert/Progress Note Visit Number 19 Physician Authorized Visits E&T Insurance Information Recert Due Date 12/29/24 Insurance Name Medicare B Medical Diagnosis Z96.651 - S/P R TKA Treating Diagnosis Z96.651 - S/P R TKA Referring Dat Thomas MD Subjective Preferred Name Zack Subjective 9 weeks post-op. Doing well. Knee has been feeling okay today. Was quite sore after last session with most of her soreness occurring on Thursday. Reports that her knee was very tender to the touch on the medial aspect. Date of Surgery (If applicable) 09/28/24 Precautions Weight Bearing Status Weight Bear as Tolerated Home Exercise Home Exercise Comments Access Code: [email or web address] URL: [email or web address]/ Date: 09/30/2024 Prepared by: Ivan Parnell Program Notes These exercises are designed to bend and straighten your knee as well as restore firing of your quadriceps. You will likely have some pain with these exercises and that is okay. Keeping your knee moving and firing your quad will help to alleviate pain and restore function of your knee more quickly.? Exercises - Supine Ankle Pumps - 3 x daily - 7 x weekly - 1 sets - 10 reps - Supine Quad Set - 3 x daily - 7 x weekly - 1 sets - 10 reps - 5 seconds hold - Supine Isometric Hamstring Set - 3 x daily - 7 x weekly - 1 sets - 10 reps - 5 seconds hold - Supine Heel Slide - 3 x daily - 7 x weekly - 1 sets - 10 reps - Supine Heel Slide with Strap - 3 x daily - 7 x weekly - 1 sets - 10 reps - Supine Knee Extension Strengthening - 3 x daily - 7 x weekly - 1 sets - 10 reps - Active Straight Leg Raise with Quad Set - 3 x daily - 7 x weekly - 1 sets - 10 reps - Seated Long Arc Quad - 3 x daily - 7 x weekly - 1 sets - 10 reps - Supine Knee Extension Stretch on Towel Roll - 3 x daily - 7 x weekly - 1 sets - 1-5 minutes hold - Seated Passive Knee Extension - 3 x daily - 7 x weekly - 1 sets - 1-5 minutes hold Objective Other/Pertinent Objective R Knee PROM flexion: 94 ( initial), 103 (final) R Knee PROM extension: lacking 1 degree after stretching Patient Instructed in Risks/Benefits Yes Therapeutic Exercise Therapeutic Exercise Minutes (minutes) 45 Therapeutic Exercise: To Restore Bike - seat 8->5, 12 minutes Functional Status Knee extension stretch x 1' Stairs x 16 Squats with handrail 2 x 10 Squat with chair touch x 10 BW squats 2 x 10 BW Squats x 10 SL stance 3 x 30 ea Leg Press, seat 8 - 100# x 10, 110# 2 x 8 Arm Bar stretch 2 x 60 Manual Therapy Techniques Manual Therapy Minutes (minutes) 10 Manual Therapy Techniques Decongestive massage to R LE to reduce swelling STM to R posterior knee capsule to reduce tissue tension. Treatment Minutes Timed Code Treatment Minutes 55 Total Treatment Time 55 Billing Units Manual Therapy Units 1 Therapeutic Exercise Units 3 Assessment/Impression Assessment/Impression Jessica has made fair progress during her time in PT. She continues to lack 115 degrees of R knee flexion measuring 0- 1-103 degrees today after stretching. At this time, I don't think reaching 120 degrees of knee flexion is a realistic goal for Jessica. I have modified this goal to 110 degrees today. Having said this, Jessica's function is actually quite good and I discussed with her today that while her knee flexion AROM is not ideal, we may see more benefit from shifting our focus from improving her ROM to improving her strength and balance. Jessica states that she would like to continue working with PT and we have agreed to have her schedule 4 additional treatment sessions over the next 4 weeks with emphasis on improving her strength and balance and stretching her knee as able to maintain her ROM. Recommend continued PT services to address deficits and return pt to highest level of function. Primary Functional Limitations Walking, transfers Plan of Care Physical Therapy Goals STG - To be completed in 2-3 weeks: 1. Pt will report consistent use of ice as well as elevation of surgical limb while resting to reduce inflammation and swelling. MET 2. Pt will demonstrate 90 degrees of knee flexion on surgical limb to reduce risk of contracture development and progress through rehabilitation as expected. MET 3. Pt to show appropriate use of all AD's with minimal gait deviations and no LOB with all ambulation to reduce risk of falls and restore normal gait mechanics. MET 4. Pt will demo full knee extension to reduce risk of contracture in posterior knee and allow for ease of ambulation. MET LTG - To be completed in 6-10 weeks: 1. Pt to be I with HEP so that they may I manage progression of symptoms. 2. Pt will demonstrate 120 degrees knee flexion on surgical limb so that they may descend steps without restrictions in ROM. Modify goal (110 degrees) 3. Pt will perform 10+ squats of full depth with good control over medial/lateral deviation of knees to show improved functional strength to assist with transfers. MET 4. Pt will demonstrate 5/5 MMT knee flexion/extension of surgical limb to provide greater support to knee joint and allow for ease of ambulation. MET 5. Pt will ambulate with no AD and minimal gait deviations so that they may return to walking safely and comfortably for exercise and pleasure. Daily Plan of Care Continue per POC Daily Plan of Care Comments stairs, push knee flexion
--- NOTE | 2025-01-05 13:37 | PT.OPDN ---
PT [place] [facility] Daily Note PT [facility] Daily Note Start: 09/30/24 11:03 Freq: Status: Active Protocol: Document 01/05/25 11:06 EIE (Rec: 01/05/25 12:13 EIE [id number]) E-signed By Ro Iqbal, PT PT OP Daily Progress Note Visit Information Note Type Daily Note Visit Number 26 Insurance Authorized NO PRIOR AUTH NEEDED, NO VISIT LIMIT FOR PT Visits Insurance Information Recert Due Date 12/29/24 Insurance Name Medicare B Medical Diagnosis Z96.651 - S/P R TKA Treating Diagnosis Z96.651 - S/P R TKA Referring Dat Thomas MD Subjective Preferred Name Zack Subjective Not too sore after last session. Was able to do 3 stairs at home but then stopped due to fear of falling. Pain Comments mild - anterior thigh, medial knee, posterior R knee Date of Surgery (If 09/28/24 applicable) Precautions Weight Bearing Weight Bear as Tolerated Status Home Exercise Home Exercise home stretch flexion supine with strap behind thigh, Comments seated flex contract relax, HS/calf stretch with strap, stretches at stair for flexion and MTP on block to improve ext. Objective Other/Pertinent R knee ROM 0-0-110 Objective Very tender to light palpation R medial distal hamstring tendon this date, localized edema noted in addition to generalized edema throughout R knee increase compared with last visit. Patient Instructed Yes in Risks/Benefits Therapeutic Exercise Therapeutic Exercise 20 Minutes (minutes) Therapeutic Exercise -Bike seat 8-6 x 8 min for incremental ROM increase : To Restore -seated flex with overpressure in closed chain & open Functional Status chain - supine PROM flexion 5 x 10 sec hold at end range -6 step ups 2 x 10 R -6 step downs x 10 R -4 step step up/overs forward & backward x 10 each - applied kinesiotape to inhibit R medial distal hamstring with decompression strip over point of maximal tenderness - incline board gastroc stretch Manual Therapy Techniques Manual Therapy 25 Minutes (minutes) Manual Therapy STM, MFR & IASTM to R knee medial anterior, posterior Techniques medial & central, proximal calf seated knee mobs A/P and P/A grade IV patellar mobs - restricted superior Neuromuscular Re-Ed Neuromuscular 8 Reeducation Minutes (minutes) Neuromuscular tandem balance 2 x 30B Reeducation Comments SLS balance 2 x max hold B rhomberg head turns R/L and vertical rhomberg on foam head turns horiz & vertical modified tandem on foam 2 x max hold B Other Interventions Provided Other Modalities US to R distal medial hamstring area of inflammation - Provided 1hz, 2.0 x 6' Pt tolerated well, no skin redness or symptoms reported , improved sensitivity following treatment Other Modalities 6 Timed Minutes Treatment Minutes Timed Code Treatment 59 Minutes Total Treatment Time 59 Billing Units Manual Therapy Units 2 Neuromuscular 1 Reeducation Units Therapeutic Exercise 1 Units Assessment/Impression Assessment/ Pt is diligent about HEP including use of CPM 4 hours/ Impression day. At PT session earlier this week measured 0-113 following manual therapy & passive end range stretching . Today slightly reduced due to increased edema and pain, 0-110. She initiated step over step stairs this week in clinic and at home. Needs continued strengthening and balance but ROM appears close to functional range in flexion despite being under 120. Plan of Care Physical Therapy STG - To be completed in 2-3 weeks: Goals 1. Pt will report consistent use of ice as well as elevation of surgical limb while resting to reduce inflammation and swelling. MET 2. Pt will demonstrate 90 degrees of knee flexion on surgical limb to reduce risk of contracture development and progress through rehabilitation as expected. MET 3. Pt to show appropriate use of all AD's with minimal gait deviations and no LOB with all ambulation to reduce risk of falls and restore normal gait mechanics. MET 4. Pt will demo full knee extension to reduce risk of contracture in posterior knee and allow for ease of ambulation. MET LTG - To be completed in 6-10 weeks: 1. Pt to be I with HEP so that they may I manage progression of symptoms. 2. Pt will demonstrate 120 degrees knee flexion on surgical limb so that they may descend steps without restrictions in ROM. Modify goal (110 degrees) 3. Pt will perform 10+ squats of full depth with good control over medial/lateral deviation of knees to show improved functional strength to assist with transfers. MET 4. Pt will demonstrate 5/5 MMT knee flexion/extension of surgical limb to provide greater support to knee joint and allow for ease of ambulation. MET 5. Pt will ambulate with no AD and minimal gait deviations so that they may return to walking safely and comfortably for exercise and pleasure. Daily Plan of Care Continue per POC Daily Plan of Care stairs, push knee flexion, balance gait and squat to Comments lift
--- NOTE | 2025-01-23 15:07 | PT.OPDN ---
[facility] Daily Note Start: 09/30/24 11:03 Freq: Status: Active Protocol: Document 01/23/25 14:08 CJT (Rec: 01/23/25 15:07 CJT [id number]) E-signed By Ivan Parnell, PT PT OP Daily Progress Note Visit Information Note Type Recert/Progress Note Visit Number [id number] Insurance Authorized NO PRIOR AUTH NEEDED, NO VISIT LIMIT FOR PT Visits Insurance Information Recert Due Date 03/26/25 Insurance Name Medicare B Medical Diagnosis Z96.651 - S/P R TKA Treating Diagnosis Z96.651 - S/P R TKA Referring Dat Thomas MD Subjective Subjective Pt reports that she feels like she is carrying a weight strapped around her knee. Continues to complain of swelling in posterior R knee. Notes much stiffness in knee after extended periods of sitting. Date of Surgery (If 09/28/24 applicable) Precautions Treatment manip 12-27-24 Precautions/ Contraindications Weight Bearing Weight Bear as Tolerated Status Home Exercise Home Exercise home stretch flexion supine with strap behind thigh, Comments seated flex contract relax, HS/calf stretch with strap, stretches at stair for flexion and MTP on block to improve ext. Objective Other/Pertinent R quad: 5/5 MMT Objective R hamstrin/5 MMT R knee AROM: 1-0-98 Patient Instructed Yes in Risks/Benefits Therapeutic Exercise Therapeutic Exercise 45 Minutes (minutes) Therapeutic Exercise Bike - 10 minutes, level 7 : To Restore Supine HS stretch 2 x 60 Functional Status Gastroc stretch on slant board 2 x 60 HS stretch with strap x 60 Sit to stands with arms crossed 2 x 12 TRX Squat 2 x 8 Heel raises 2 x 10 Sled push/Pull, 65# x 75ft ea 12 step-overs, forward/lateral 2 x 6 ea Manual Therapy Techniques Manual Therapy 10 Minutes (minutes) Manual Therapy STM to L hamstrings, posterior knee capsule gastroc, Techniques soleus to reduce tissue tension and improve extensibility. Decongestive massage to posterior knee to reduce swelling Treatment Minutes Timed Code Treatment 55 Minutes Total Treatment Time 55 Billing Units Manual Therapy Units 1 Therapeutic Exercise 3 Units Assessment/Impression Assessment/ Jessica continues to demonstrate decreased R knee AROM Impression flexion with 1-0-98 measurement this date. I do think that her flexion is primarily limited by structures in posterior R knee. 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 Jessica does feel relief of this pressure behind her knee with stretching to the hamstrings and gastrocs and she understands that she should be stretching these muscle groups at least twice daily. I've asked Jessica to ask SHERYL Cerna about other treatment options when she visits with him this . Recommend continued PT services to address deficits and return pt to highest level of function. Primary Functional Walking, transfers Limitations Plan of Care Physical Therapy STG - To be completed in 2-3 weeks: Goals 1. Pt will report consistent use of ice as well as elevation of surgical limb while resting to reduce inflammation and swelling. MET 2. Pt will demonstrate 90 degrees of knee flexion on surgical limb to reduce risk of contracture development and progress through rehabilitation as expected. MET 3. Pt to show appropriate use of all AD's with minimal gait deviations and no LOB with all ambulation to reduce risk of falls and restore normal gait mechanics. MET 4. Pt will demo full knee extension to reduce risk of contracture in posterior knee and allow for ease of ambulation. MET LTG - To be completed in 6-10 weeks: 1. Pt to be I with HEP so that they may I manage progression of symptoms. 2. Pt will demonstrate 120 degrees knee flexion on surgical limb so that they may descend steps without restrictions in ROM. Modify goal (110 degrees) 3. Pt will perform 10+ squats of full depth with good control over medial/lateral deviation of knees to show improved functional strength to assist with transfers. MET 4. Pt will demonstrate 5/5 MMT knee flexion/extension of surgical limb to provide greater support to knee joint and allow for ease of ambulation. MET 5. Pt will ambulate with no AD and minimal gait deviations so that they may return to walking safely and comfortably for exercise and pleasure. Daily Plan of Care Continue per POC Daily Plan of Care stairs, push knee flexion, balance gait and squat to Comments lift
== END 2025-03-14 14:42 | disposition home or self-care (01) ==
PROVIDERS: PCP Internal Medicine; Visit Provider Orthopaedic Surgery Sports Medicine
DX: R42 Dizziness and giddiness (principal); R73.03 Prediabetes; Z96.651 Presence of right artificial knee joint; Z47.1 Aftercare following joint replacement surgery; Z98.890 Other specified postprocedural states; E03.9 Hypothyroidism, unspecified; E78.5 Hyperlipidemia, unspecified; I10 Essential (primary) hypertension; M25.562 Pain in left knee; M25.561 Pain in right knee
CPT/HCPCS: 80053; 80061; 84443; 97016; 97032; 97110; 97112; 97116; 97140; 97161; 97164

== ENCOUNTER 2025-07-05 10:01 | Outpatient (CLI) | payer MEDICARE, OTHER, SELFPAY ==
--- NOTE | 2025-07-05 10:15 | CRLHL7_ITS ---
For Patients: As a result of the Century Cures Act, medical imaging exams and procedure reports are released immediately into your electronic medical record. You may view this report before your referring provider. If you have questions, please contact your health care provider. INDICATION: BILATERAL SCREENING MAMMOGRAM, ASYMPTOMATIC 75 Y/O FEMALE COMPARISON: 05/30/2024, 05/28/2023, 03/04/2022 TECHNIQUE: Digital mammogram in CC and MLO projections including computer-aided detection (CAD) and tomosynthesis. BREAST COMPOSITION: There are scattered areas of fibroglandular density. FINDINGS: No suspicious findings. ASSESSMENT: BI-RADS 1 Negative RECOMMENDATION: Annual screening mammogram. A lay language report of this examination will be provided to the patient. Dictated by: Sven Bess MD @ 07/05/2025 12:23:53 (Electronically Signed)
== END 2025-07-05 10:02 | disposition home or self-care (01) ==
LOC: MAMMO 10:02
PROVIDERS: PCP Internal Medicine; Visit Provider Internal Medicine
DX: Z12.31 Encounter for screening mammogram for malignant neoplasm of breast (principal)
CPT/HCPCS: 77063; 77067